=== PATIENT | female | born 1930 | race Two or more races ===

== ENCOUNTER 2020-01-18 18:14 | Observation (INO) | payer MEDICARE, OTHER ==
[2020-01-18] MEDS ORDERED: Sodium Chloride 0.9% 10 ML Syringe FLUSH PRN (18:19)
[2020-01-18] MEDS ORDERED: Acetaminophen 325 MG Tab PO ONE (18:41)
--- NOTE | 2020-01-18 18:43 | EDM.PDOC ---
ED HPI GENERAL MEDICAL PROBLEM - General Chief Complaint: Fever Stated Complaint: AMBULANCE Time Seen by Provider: 01/18/20 18:42 Source of Information: Reports: Patient History Limitations: Reports: No Limitations - History of Present Illness INITIAL COMMENTS - FREE TEXT/NARRATIVE: onset Sx today with F/C cough. daughter recently moved from [place] past month. denies CP some SOB, appetite xlent per pt. no N/V/D. no body aches, just feels tired and sick. 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: Musculoskeletal History: Reports: Back Pain, Chronic Neurological History: Reports: TIA Psychiatric History: Reports: None Endocrine/Metabolic History: Reports: Diabetes, Type I, Obesity/BMI 30+ Hematologic History: Reports: None Immunologic History: Reports: None Oncologic (Cancer) History: Reports: None Dermatologic History: Reports: None - Infectious Disease History Infectious Disease History: Reports: None - Past Surgical History Head Surgeries/Procedures: Reports: None Social & Family History - Family History Family Medical History: Noncontributory - Tobacco Use Smoking Status *Q: Never Smoker Second Hand Smoke Exposure: Yes - Caffeine Use Caffeine Use: Reports: Coffee - Recreational Drug Use Recreational Drug Use: No ED ROS GENERAL - Review of Systems Review Of Systems: Comprehensive ROS is negative, except as noted in HPI. ED EXAM, SEPSIS - Physical Exam Exam: See Below Exam Limited By: No Limitations General Appearance: Alert, WD/WN, Mild Distress, Other (discomfort) Ears: Hearing Grossly Normal Throat/Mouth: Normal Voice, No Airway Compromise Head: Atraumatic Neck: Non-Tender, Full Range of Motion Respiratory/Chest: No Respiratory Distress, Rhonchi Cardiovascular: Regular Rate, Rhythm GI/Abdominal Exam: Soft, Non-Tender Neurological: Alert, Oriented, Normal Cognition, No Motor/Sensory Deficits Psychiatric: Flat Affect Skin: Warm, Dry, Normal Color Course - Vital Signs Last Recorded V/S: Last Vital Signs Temp 37.6 C 01/18/20 19:53 Pulse 108 H 01/18/20 18:13 Resp 24 H 01/18/20 18:13 BP 160/57 H 01/18/20 18:13 Pulse Ox 94 L 01/18/20 18:13 - Orders/Labs/Meds Orders: Active Orders 24 hr Category Date Time Status Peripheral IV Care [RC] . DIRECTED Care 01/18/20 18:19 Active CULTURE BLOOD [BC] Stat Lab 01/18/20 18:59 Received CULTURE BLOOD [] Stat Lab 01/18/20 19:35 Received CULTURE STREP A CONFIRMATION [] Stat Lab 01/18/20 18:26 Results STREP SCRN A RAPID W CULT CONF [] Stat Lab 01/18/20 18:26 Results Sodium Chloride 0.9% [Saline Flush] Med 01/18/20 18:19 Active 10 ml FLUSH ASDIRECTED PRN Blood Culture x2 Reflex Set [OM.PC] Stat Oth 01/18/20 18:18 Ordered Isolation [COMM] Routine Oth 01/18/20 18:15 Active Peripheral IV Insertion Adult [OM.PC] Stat Oth 01/18/20 18:18 Ordered Medication Orders Sodium Chloride (Saline Flush) 10 ml FLUSH ASDIRECTED PRN PRN Reason: Keep Vein Open Last Admin: 01/18/20 18:45 Dose: 10 ml Labs: Laboratory Tests 01/18/20 01/18/20 01/18/20 Range/Units 18:26 18:59 18:59 WBC 20.2 H (5.0-10.0) 10^3/uL RBC 4.49 (4.2-5.4) 10^6/uL Hgb 13.3 (12.0-16.0) g/dL Hct 40.6 (37.0-47.0) % MCV 90.4 (80-100) fL MCH 29.6 (27.0-34.0) pg MCHC 32.8 L (33.0-35.0) g/dL Plt Count 235 (150-450) 10^3/uL Neut % (Auto) 88.3 H (42.2-75.2) % Lymph % (Auto) 4.1 L (20.5-50.1) % Mccormick % (Auto) 7.4 (2-8) % Eos % (Auto) 0.0 L (1.0-3.0) % Baso % (Auto) 0.2 (0.0-1.0) % Add Manual Diff Yes Neutrophils % (Manual) 87 H (42-75) % Band Neutrophils % 2 % Lymphocytes % (Manual) 3 L (20-50) % Monocytes % (Manual) 8 (2-8) % PT 9.8 (9.0-12.0) SEC INR 1.0 (0.9-1.2) APTT 25.0 (22.0-34.0) SEC D-Dimer, Quantitative 3530 H (0-400) ng/mL Sodium (136-145) mmol/L Potassium (3.5-5.1) mmol/L Chloride (98-107) mmol/L Carbon Dioxide (21-32) mmol/L Anion Gap (7-13) mEq/L BUN (7-18) mg/dL Creatinine (0.55-1.02) mg/dL Est Cr Clr Drug Dosing Estimated GFR (MDRD) BUN/Creatinine Ratio (No establ ref range) Glucose (74-99) mg/dL Lactic Acid (0.4-2.0) mmol/L Calcium (8.5-10.1) mg/dL Ferritin (8-252) mg/mL Total Bilirubin (0.2-1.0) mg/dL AST (15-37) U/L ALT (14-59) U/L Alkaline Phosphatase (46-116) U/L Creatine Kinase (16-191) U/L Troponin I (0.000-0.056) ng/mL C-Reactive Protein (0.0-0.9) mg/dL B-Natriuretic Peptide (0-100) pg/ml Total Protein (6.4-8.2) g/dL Albumin (3.4-5.0) g/dL Globulin Albumin/Globulin Ratio Urine Color (YELLOW) Urine Appearance (CLEAR) Urine pH (5.0-9.0) Ur Specific [place] (1.005-1.030) Urine Protein (NEGATIVE) Urine Glucose (UA) (NEGATIVE) Urine Ketones (NEGATIVE) Urine Occult Blood (NEGATIVE) Urine Nitrite (NEGATIVE) Urine Bilirubin (NEGATIVE) Urine Urobilinogen (0.2-1.0) mg/dL Ur Leukocyte Esterase (NEGATIVE) Urine RBC /HPF Urine WBC (0-5/HPF) /HPF Ur Epithelial Cells (NOT SEEN) /HPF Amorphous Sediment (NOT SEEN) /HPF Urine Bacteria (0-FEW/HPF) /HPF Granular Casts (Auto) Urine Mucus (NOT SEEN) /LPF SARS-CoV-2 RNA (RT-PCR) Negative (NEGATIVE) 01/18/20 01/18/20 01/18/20 Range/Units 18:59 18:59 18:59 WBC (5.0-10.0) 10^3/uL RBC (4.2-5.4) 10^6/uL Hgb (12.0-16.0) g/dL Hct (37.0-47.0) % MCV (80-100) fL MCH (27.0-34.0) pg MCHC (33.0-35.0) g/dL Plt Count (150-450) 10^3/uL Neut % (Auto) (42.2-75.2) % Lymph % (Auto) (20.5-50.1) % Mccormick % (Auto) (2-8) % Eos % (Auto) (1.0-3.0) % Baso % (Auto) (0.0-1.0) % Add Manual Diff Neutrophils % (Manual) (42-75) % Band Neutrophils % % Lymphocytes % (Manual) (20-50) % Monocytes % (Manual) (2-8) % PT (9.0-12.0) SEC INR (0.9-1.2) APTT (22.0-34.0) SEC D-Dimer, Quantitative (0-400) ng/mL Sodium 141 (136-145) mmol/L Potassium 3.3 L (3.5-5.1) mmol/L Chloride 105 (98-107) mmol/L Carbon Dioxide 28 (21-32) mmol/L Anion Gap 11.3 (7-13) mEq/L BUN 24 H (7-18) mg/dL Creatinine 1.48 H (0.55-1.02) mg/dL Est Cr Clr Drug Dosing TNP Estimated GFR (MDRD) 33 BUN/Creatinine Ratio 16.2 (No establ ref range) Glucose 131 H (74-99) mg/dL Lactic Acid 0.9 (0.4-2.0) mmol/L Calcium 8.4 L (8.5-10.1) mg/dL Ferritin 68 (8-252) mg/mL Total Bilirubin 0.5 (0.2-1.0) mg/dL AST 24 (15-37) U/L ALT 21 (14-59) U/L Alkaline Phosphatase 74 (46-116) U/L Creatine Kinase 191 (16-191) U/L Troponin I 0.019 (0.000-0.056) ng/mL C-Reactive Protein 3.6 H (0.0-0.9) mg/dL B-Natriuretic Peptide 127 H (0-100) pg/ml Total Protein 6.8 (6.4-8.2) g/dL Albumin 3.2 L (3.4-5.0) g/dL Globulin 3.6 Albumin/Globulin Ratio 0.89 Urine Color (YELLOW) Urine Appearance (CLEAR) Urine pH (5.0-9.0) Ur Specific [place] (1.005-1.030) Urine Protein (NEGATIVE) Urine Glucose (UA) (NEGATIVE) Urine Ketones (NEGATIVE) Urine Occult Blood (NEGATIVE) Urine Nitrite (NEGATIVE) Urine Bilirubin (NEGATIVE) Urine Urobilinogen (0.2-1.0) mg/dL Ur Leukocyte Esterase (NEGATIVE) Urine RBC /HPF Urine WBC (0-5/HPF) /HPF Ur Epithelial Cells (NOT SEEN) /HPF Amorphous Sediment (NOT SEEN) /HPF Urine Bacteria (0-FEW/HPF) /HPF Granular Casts (Auto) Urine Mucus (NOT SEEN) /LPF SARS-CoV-2 RNA (RT-PCR) (NEGATIVE) 01/18/20 Range/Units 19:58 WBC (5.0-10.0) 10^3/uL RBC (4.2-5.4) 10^6/uL Hgb (12.0-16.0) g/dL Hct (37.0-47.0) % MCV (80-100) fL MCH (27.0-34.0) pg MCHC (33.0-35.0) g/dL Plt Count (150-450) 10^3/uL Neut % (Auto) (42.2-75.2) % Lymph % (Auto) (20.5-50.1) % Mccormick % (Auto) (2-8) % Eos % (Auto) (1.0-3.0) % Baso % (Auto) (0.0-1.0) % Add Manual Diff Neutrophils % (Manual) (42-75) % Band Neutrophils % % Lymphocytes % (Manual) (20-50) % Monocytes % (Manual) (2-8) % PT (9.0-12.0) SEC INR (0.9-1.2) APTT (22.0-34.0) SEC D-Dimer, Quantitative (0-400) ng/mL Sodium (136-145) mmol/L Potassium (3.5-5.1) mmol/L Chloride (98-107) mmol/L Carbon Dioxide (21-32) mmol/L Anion Gap (7-13) mEq/L BUN (7-18) mg/dL Creatinine (0.55-1.02) mg/dL Est Cr Clr Drug Dosing Estimated GFR (MDRD) BUN/Creatinine Ratio (No establ ref range) Glucose (74-99) mg/dL Lactic Acid (0.4-2.0) mmol/L Calcium (8.5-10.1) mg/dL Ferritin (8-252) mg/mL Total Bilirubin (0.2-1.0) mg/dL AST (15-37) U/L ALT (14-59) U/L Alkaline Phosphatase (46-116) U/L Creatine Kinase (16-191) U/L Troponin I (0.000-0.056) ng/mL C-Reactive Protein (0.0-0.9) mg/dL B-Natriuretic Peptide (0-100) pg/ml Total Protein (6.4-8.2) g/dL Albumin (3.4-5.0) g/dL Globulin Albumin/Globulin Ratio Urine Color Yellow (YELLOW) Urine Appearance Clear (CLEAR) Urine pH 6.0 (5.0-9.0) Ur Specific [place] 1.020 (1.005-1.030) Urine Protein 30 H (NEGATIVE) Urine Glucose (UA) Negative (NEGATIVE) Urine Ketones Negative (NEGATIVE) Urine Occult Blood Negative (NEGATIVE) Urine Nitrite Negative (NEGATIVE) Urine Bilirubin Negative (NEGATIVE) Urine Urobilinogen 0.2 (0.2-1.0) mg/dL Ur Leukocyte Esterase Negative (NEGATIVE) Urine RBC Not seen /HPF Urine WBC 0-5 (0-5/HPF) /HPF Ur Epithelial Cells Few (NOT SEEN) /HPF Amorphous Sediment Few (NOT SEEN) /HPF Urine Bacteria Rare (0-FEW/HPF) /HPF Granular Casts (Auto) Occasional Urine Mucus Few H (NOT SEEN) /LPF SARS-CoV-2 RNA (RT-PCR) (NEGATIVE) Meds: Medications Generic Name Dose Route Start Last Admin Trade Name Nehal PRN Reason Stop Dose Admin Sodium Chloride 10 ml 01/18/20 18:19 01/18/20 18:45 Saline Flush FLUSH 10 ml ASDIRECTED PRN Administration Keep Vein Open Discontinued Medications Generic Name Dose Route Start Last Admin Trade Name Nehal PRN Reason Stop Dose Admin Acetaminophen 650 mg 01/18/20 18:41 01/18/20 18:45 Tylenol PO 01/18/20 18:42 650 mg NOW ONE Administration - Re-Assessments/Exams Free Text/Narrative Re-Assessment/Exam: 01/18/20 20:[address] Fournier who kindly admitted pt to observation. Departure - Departure Time of Disposition: 20:43 Disposition: Refer to Observation Condition: Good Clinical Impression: Fever of unknown origin (FUO), Elevated C-reactive protein (CRP) Leukocytosis, unspecified Qualifiers: Leukocytosis type: unspecified Qualified Code(s): D72.829 - Elevated white blood cell count, unspecified - Discharge Information Forms: ED Department Discharge Sepsis Event Note - Evaluation Sepsis Screening Result: No Definite Risk - Focused Exam Vital Signs: Vital Signs Temp Pulse Resp BP Pulse Ox 01/18/20 19:53 37.6 C 01/18/20 18:13 39.2 C H 108 H 24 H 160/57 H 94 L Date Exam was Performed: 01/18/20 Time Exam was Performed: 20:42
--- NOTE | 2020-01-18 19:12 | CR ---
PROCEDURE INFORMATION: Exam: XR Chest, 1 View Exam date and time: 01/18/2020 7:06 PM Age: 89 years old Clinical indication: Cough and fever; Additional info: Cough, fever TECHNIQUE: Imaging protocol: XR of the chest Views: 1 view. COMPARISON: No relevant prior studies available. FINDINGS: Lungs: Unremarkable. No consolidation. No edema. Pleural space: Unremarkable. No pleural effusion. No pneumothorax. Heart/Mediastinum: Unremarkable. No cardiomegaly. Bones/joints: Degenerative thoracic spine disease IMPRESSION: 1. No infiltrates or pulmonary edema. 2. No pleural effusions. 3. Degenerative thoracic spine disease.
[2020-01-18 19:29] LABS: ANION GAP 11.3 mEq/L (7-13); CHLORIDE,CL 105 mmol/L (98-107); SODIUM,NA 141 mmol/L (136-145)
[2020-01-18] MEDS ORDERED: Ondansetron 4 MG Tab.DIS PO PRN (21:25)
[2020-01-18] MEDS ORDERED: Docusate Sodium 100 MG Cap PO PRN (21:25)
[2020-01-18] MEDS ORDERED: Temazepam 15 MG Cap PO PRN (21:25)
[2020-01-18] MEDS ORDERED: Potassium Chloride 10 MEQ Tab.ER PO ONE (21:26)
[2020-01-18] MEDS ORDERED: Levofloxacin/Dextrose 5%-Water 750 MG in Premix Bag 1 BAG IV SCH (21:30)
--- NOTE | 2020-01-18 21:32 | PCM.HP ---
H&P History of Present Illness - General Date of Service: 01/18/20 Admit Problem/Dx: Admission Diagnosis/Problem Admission Diagnosis/Problem Fever due to infection Source of Information: Patient, Provider (ER dr. Florence) - History of Present Illness Initial Comments - Free Text/Narative: 89-year-old with a history of chronic kidney disease, hypertension, diet- controlled diabetes. The patient lives with elderly and granddaughter who moved to live with them about a month ago from [place]. Sick contact. The patient developed chills last night. Noted to have fever during the day. Apparently she had 2 complains of cough but denies that now. Not coughing during examination. Denies any other complaints. No shortness of breath, no chest pain, no abdominal pain, no diarrhea. Middle Back Pain Score (Numeric/FACES): 6 Past Medical History HEENT History: Reports: Impaired Vision Cardiovascular History: Reports: Hypertension Respiratory History: Reports: None Gastrointestinal History: Reports: Other (See Below) Other Gastrointestinal History: hernia Genitourinary History: Reports: Urinary Incontinence [employer] History: Reports: Musculoskeletal History: Reports: Back Pain, Chronic Neurological History: Reports: TIA Psychiatric History: Reports: None Endocrine/Metabolic History: Reports: Diabetes, Type I, Obesity/BMI 30+ Hematologic History: Reports: None Immunologic History: Reports: None Oncologic (Cancer) History: Reports: None Dermatologic History: Reports: None - Infectious Disease History Infectious Disease History: Reports: None - Past Surgical History Head Surgeries/Procedures: Reports: None Social & Family History - Family History Family Medical History: Noncontributory - Tobacco Use Smoking Status *Q: Never Smoker Second Hand Smoke Exposure: Yes - Caffeine Use Caffeine Use: Reports: Coffee - Recreational Drug Use Recreational Drug Use: No H&P Review of Systems - Review of Systems: Review Of Systems: See Below General: Reports: Fever, Chills Pulmonary: Denies: Shortness of Breath Cardiovascular: Denies: Chest Pain, Edema Gastrointestinal: Denies: Abdominal Pain Genitourinary: Denies: Dysuria Neurological: Denies: Headache, Seizure Exam - Exam Exam: See Below - Vital Signs Vital Signs: Last Vital Signs Temp 99.7 F 01/18/20 19:53 Pulse 84 01/18/20 21:17 Resp 20 01/18/20 21:17 BP 134/46 L 01/18/20 21:17 Pulse Ox 98 01/18/20 21:17 Weight: 186 lb - Exam General: Alert, Oriented (Although has a little knowledge of her medical conditions and cannot recall her medications.) Lungs: Clear to Auscultation, Normal Respiratory Effort Cardiovascular: Regular Rate, Regular Rhythm GI/Abdominal Exam: Normal Bowel Sounds, Soft, Non-Tender Extremities: No Pedal Edema - Patient Data Lab Results Last 24 hrs: Laboratory Results - last 24 hr 01/18/20 01/18/20 01/18/20 Range/Units 18:26 18:59 18:59 WBC 20.2 H (5.0-10.0) 10^3/uL RBC 4.49 (4.2-5.4) 10^6/uL Hgb 13.3 (12.0-16.0) g/dL Hct 40.6 (37.0-47.0) % MCV 90.4 (80-100) fL MCH 29.6 (27.0-34.0) pg MCHC 32.8 L (33.0-35.0) g/dL Plt Count 235 (150-450) 10^3/uL Neut % (Auto) 88.3 H (42.2-75.2) % Lymph % (Auto) 4.1 L (20.5-50.1) % Hutchinson % (Auto) 7.4 (2-8) % Eos % (Auto) 0.0 L (1.0-3.0) % Baso % (Auto) 0.2 (0.0-1.0) % Add Manual Diff Yes Neutrophils % (Manual) 87 H (42-75) % Band Neutrophils % 2 % Lymphocytes % (Manual) 3 L (20-50) % Monocytes % (Manual) 8 (2-8) % PT 9.8 (9.0-12.0) SEC INR 1.0 (0.9-1.2) APTT 25.0 (22.0-34.0) SEC D-Dimer, Quantitative 3530 H (0-400) ng/mL Sodium (136-145) mmol/L Potassium (3.5-5.1) mmol/L Chloride (98-107) mmol/L Carbon Dioxide (21-32) mmol/L Anion Gap (7-13) mEq/L BUN (7-18) mg/dL Creatinine (0.55-1.02) mg/dL Est Cr Clr Drug Dosing Estimated GFR (MDRD) BUN/Creatinine Ratio (No establ ref range) Glucose (74-99) mg/dL Lactic Acid (0.4-2.0) mmol/L Calcium (8.5-10.1) mg/dL Ferritin (8-252) mg/mL Total Bilirubin (0.2-1.0) mg/dL AST (15-37) U/L ALT (14-59) U/L Alkaline Phosphatase (46-116) U/L Creatine Kinase (16-191) U/L Troponin I (0.000-0.056) ng/mL C-Reactive Protein (0.0-0.9) mg/dL B-Natriuretic Peptide (0-100) pg/ml Total Protein (6.4-8.2) g/dL Albumin (3.4-5.0) g/dL Globulin Albumin/Globulin Ratio Urine Color (YELLOW) Urine Appearance (CLEAR) Urine pH (5.0-9.0) Ur Specific Picher (1.005-1.030) Urine Protein (NEGATIVE) Urine Glucose (UA) (NEGATIVE) Urine Ketones (NEGATIVE) Urine Occult Blood (NEGATIVE) Urine Nitrite (NEGATIVE) Urine Bilirubin (NEGATIVE) Urine Urobilinogen (0.2-1.0) mg/dL Ur Leukocyte Esterase (NEGATIVE) Urine RBC /HPF Urine WBC (0-5/HPF) /HPF Ur Epithelial Cells (NOT SEEN) /HPF Amorphous Sediment (NOT SEEN) /HPF Urine Bacteria (0-FEW/HPF) /HPF Granular Casts (Auto) Urine Mucus (NOT SEEN) /LPF SARS-CoV-2 RNA (RT-PCR) Negative (NEGATIVE) 01/18/20 01/18/20 01/18/20 Range/Units 18:59 18:59 18:59 WBC (5.0-10.0) 10^3/uL RBC (4.2-5.4) 10^6/uL Hgb (12.0-16.0) g/dL Hct (37.0-47.0) % MCV (80-100) fL MCH (27.0-34.0) pg MCHC (33.0-35.0) g/dL Plt Count (150-450) 10^3/uL Neut % (Auto) (42.2-75.2) % Lymph % (Auto) (20.5-50.1) % Hutchinson % (Auto) (2-8) % Eos % (Auto) (1.0-3.0) % Baso % (Auto) (0.0-1.0) % Add Manual Diff Neutrophils % (Manual) (42-75) % Band Neutrophils % % Lymphocytes % (Manual) (20-50) % Monocytes % (Manual) (2-8) % PT (9.0-12.0) SEC INR (0.9-1.2) APTT (22.0-34.0) SEC D-Dimer, Quantitative (0-400) ng/mL Sodium 141 (136-145) mmol/L Potassium 3.3 L (3.5-5.1) mmol/L Chloride 105 (98-107) mmol/L Carbon Dioxide 28 (21-32) mmol/L Anion Gap 11.3 (7-13) mEq/L BUN 24 H (7-18) mg/dL Creatinine 1.48 H (0.55-1.02) mg/dL Est Cr Clr Drug Dosing TNP Estimated GFR (MDRD) 33 BUN/Creatinine Ratio 16.2 (No establ ref range) Glucose 131 H (74-99) mg/dL Lactic Acid 0.9 (0.4-2.0) mmol/L Calcium 8.4 L (8.5-10.1) mg/dL Ferritin 68 (8-252) mg/mL Total Bilirubin 0.5 (0.2-1.0) mg/dL AST 24 (15-37) U/L ALT 21 (14-59) U/L Alkaline Phosphatase 74 (46-116) U/L Creatine Kinase 191 (16-191) U/L Troponin I 0.019 (0.000-0.056) ng/mL C-Reactive Protein 3.6 H (0.0-0.9) mg/dL B-Natriuretic Peptide 127 H (0-100) pg/ml Total Protein 6.8 (6.4-8.2) g/dL Albumin 3.2 L (3.4-5.0) g/dL Globulin 3.6 Albumin/Globulin Ratio 0.89 Urine Color (YELLOW) Urine Appearance (CLEAR) Urine pH (5.0-9.0) Ur Specific Picher (1.005-1.030) Urine Protein (NEGATIVE) Urine Glucose (UA) (NEGATIVE) Urine Ketones (NEGATIVE) Urine Occult Blood (NEGATIVE) Urine Nitrite (NEGATIVE) Urine Bilirubin (NEGATIVE) Urine Urobilinogen (0.2-1.0) mg/dL Ur Leukocyte Esterase (NEGATIVE) Urine RBC /HPF Urine WBC (0-5/HPF) /HPF Ur Epithelial Cells (NOT SEEN) /HPF Amorphous Sediment (NOT SEEN) /HPF Urine Bacteria (0-FEW/HPF) /HPF Granular Casts (Auto) Urine Mucus (NOT SEEN) /LPF SARS-CoV-2 RNA (RT-PCR) (NEGATIVE) 01/18/20 Range/Units 19:58 WBC (5.0-10.0) 10^3/uL RBC (4.2-5.4) 10^6/uL Hgb (12.0-16.0) g/dL Hct (37.0-47.0) % MCV (80-100) fL MCH (27.0-34.0) pg MCHC (33.0-35.0) g/dL Plt Count (150-450) 10^3/uL Neut % (Auto) (42.2-75.2) % Lymph % (Auto) (20.5-50.1) % Hutchinson % (Auto) (2-8) % Eos % (Auto) (1.0-3.0) % Baso % (Auto) (0.0-1.0) % Add Manual Diff Neutrophils % (Manual) (42-75) % Band Neutrophils % % Lymphocytes % (Manual) (20-50) % Monocytes % (Manual) (2-8) % PT (9.0-12.0) SEC INR (0.9-1.2) APTT (22.0-34.0) SEC D-Dimer, Quantitative (0-400) ng/mL Sodium (136-145) mmol/L Potassium (3.5-5.1) mmol/L Chloride (98-107) mmol/L Carbon Dioxide (21-32) mmol/L Anion Gap (7-13) mEq/L BUN (7-18) mg/dL Creatinine (0.55-1.02) mg/dL Est Cr Clr Drug Dosing Estimated GFR (MDRD) BUN/Creatinine Ratio (No establ ref range) Glucose (74-99) mg/dL Lactic Acid (0.4-2.0) mmol/L Calcium (8.5-10.1) mg/dL Ferritin (8-252) mg/mL Total Bilirubin (0.2-1.0) mg/dL AST (15-37) U/L ALT (14-59) U/L Alkaline Phosphatase (46-116) U/L Creatine Kinase (16-191) U/L Troponin I (0.000-0.056) ng/mL C-Reactive Protein (0.0-0.9) mg/dL B-Natriuretic Peptide (0-100) pg/ml Total Protein (6.4-8.2) g/dL Albumin (3.4-5.0) g/dL Globulin Albumin/Globulin Ratio Urine Color Yellow (YELLOW) Urine Appearance Clear (CLEAR) Urine pH 6.0 (5.0-9.0) Ur Specific Picher 1.020 (1.005-1.030) Urine Protein 30 H (NEGATIVE) Urine Glucose (UA) Negative (NEGATIVE) Urine Ketones Negative (NEGATIVE) Urine Occult Blood Negative (NEGATIVE) Urine Nitrite Negative (NEGATIVE) Urine Bilirubin Negative (NEGATIVE) Urine Urobilinogen 0.2 (0.2-1.0) mg/dL Ur Leukocyte Esterase Negative (NEGATIVE) Urine RBC Not seen /HPF Urine WBC 0-5 (0-5/HPF) /HPF Ur Epithelial Cells Few (NOT SEEN) /HPF Amorphous Sediment Few (NOT SEEN) /HPF Urine Bacteria Rare (0-FEW/HPF) /HPF Granular Casts (Auto) Occasional Urine Mucus Few H (NOT SEEN) /LPF SARS-CoV-2 RNA (RT-PCR) (NEGATIVE) Result Diagrams: 01/18/20 18:59 01/18/20 18:59 Danilo Results Last 24 hrs: Microbiology 01/18/20 18:26 Influenza Type A Antigen Screen - Final Nasal, Unspecified NEGATIVE INFLUENZA A VIRUS AG REFERENCE RANGE: NEGATIVE Influenza Type B Antigen Screen - Final NEGATIVE INFLUENZA B VIRUS AG REFERENCE RANGE: NEGATIVE 01/18/20 18:26 Group A Streptococcus Rapid Screen - Final Throat NEGATIVE STREP A SCREEN REFERENCE RANGE: NEGATIVE - Problem List (1) Diabetes SNOMED Code(s): 41228267 ICD Code: E11.9 - TYPE 2 DIABETES MELLITUS WITHOUT COMPLICATIONS Status: Acute Current Visit: Yes (2) HTN (hypertension) SNOMED Code(s): 20554866 ICD Code: I10 - ESSENTIAL (PRIMARY) HYPERTENSION Status: Acute Current Visit: Yes (3) CKD (chronic kidney disease) stage 3, GFR 30-59 ml/min SNOMED Code(s): 641136068 ICD Code: N18.3 - CHRONIC KIDNEY DISEASE, STAGE 3 (MODERATE) Status: Acute Current Visit: Yes (4) CKD (chronic kidney disease) stage 3, GFR 30-59 ml/min SNOMED Code(s): 671139006 ICD Code: N18.3 - CHRONIC KIDNEY DISEASE, STAGE 3 (MODERATE) Status: Acute Current Visit: Yes (5) Fever of unknown origin (FUO) SNOMED Code(s): 4756880 ICD Code: R50.9 - FEVER, UNSPECIFIED Status: Acute Current Visit: No (6) Leukocytosis, unspecified SNOMED Code(s): 100350136, 767796959 ICD Code: D72.829 - ELEVATED WHITE BLOOD CELL COUNT, UNSPECIFIED Status: Acute Current Visit: No Qualifiers: Leukocytosis type: unspecified Qualified Code(s): D72.829 - Elevated white blood cell count, unspecified Problem List Initiated/Reviewed/Updated: Yes Orders Last 24hrs: Active Orders 24 hr Category Date Time Status Admission Diagnosis [ADT] Stat ADT 01/18/20 20:45 Ordered Admission Diagnosis [ADT] Urgent ADT 01/18/20 20:44 Ordered Admission Status [Patient Status] [ADT] Routine ADT 01/18/20 20:44 Active Admission Status [Patient Status] [ADT] Routine ADT 01/18/20 20:45 Active Antiembolic Devices [RC] PER UNIT ROUTINE Care 01/18/20 21:26 Ordered Glucose [Blood Glucose Check, Bedside] [RC] QIDACANDBED Care 01/18/20 21:24 Ordered Oxygen Therapy [RC] PRN Care 01/18/20 21:25 Ordered Up With Assistance [RC] ASDIRECTED Care 01/18/20 21:25 Ordered VTE/DVT Education [RC] PER UNIT ROUTINE Care 01/18/20 21:25 Ordered Vital Signs [RC] Q4H Care 01/18/20 21:25 Ordered Consistent Carbohydrate Diet [DIET] Diet 01/18/20 Breakfast Ordered BASIC METABOLIC PANEL,BMP [CHEM] AM Lab 01/19/20 05:15 Ordered CBC WITH AUTO DIFF [HEME] AM Lab 01/19/20 05:15 Ordered CULTURE BLOOD [BC] Stat Lab 01/18/20 18:59 Received CULTURE BLOOD [BC] Stat Lab 01/18/20 19:35 Received CULTURE STREP A CONFIRMATION [RM] Stat Lab 01/18/20 18:26 Results STREP SCRN A RAPID W CULT CONF [RM] Stat Lab 01/18/20 18:26 Results Acetaminophen [Tylenol] Med 01/18/20 21:25 Ordered 650 mg PO Q4H PRN Docusate Sodium [Colace] Med 01/18/20 21:25 Ordered 100 mg PO BID PRN Heparin Sodium Med 01/18/20 22:00 Ordered 5,000 units SUBCUT Q8HR Insulin Lispro [HumaLOG] Med 01/19/20 07:00 Ordered See Protocol SUBCUT ACBED Levofloxacin/Dextrose 5%-Water [Levaquin in D5W 750 MG/ Med 01/18/20 21:30 Ordered 150 ML] 750 mg Premix Bag 1 bag IV .Q48H Ondansetron [Zofran ODT] Med 01/18/20 21:25 Ordered 4 mg PO Q6H PRN Potassium Chloride [Klor-Con 10] Med 01/18/20 21:26 Once 20 meq PO ONETIME ONE Temazepam [Restoril] Med 01/18/20 21:25 Ordered 15 mg PO BEDTIME PRN Antiembolic Hose [OM.PC] Per Unit Routine Oth 01/18/20 21:25 Ordered Blood Culture x2 Reflex Set [OM.PC] Stat Oth 01/18/20 18:18 Ordered Isolation [COMM] Routine Oth 01/18/20 18:15 Active Peripheral IV Insertion Adult [OM.PC] Stat Oth 01/18/20 18:18 Ordered Resuscitation Status Routine Resus Stat 01/18/20 21:25 Ordered Medication Orders Acetaminophen (Tylenol) 650 mg PO Q4H PRN PRN Reason: Pain (Mild 1-3)/fever Docusate Sodium (Colace) 100 mg PO BID PRN PRN Reason: Constipation Heparin Sodium (Porcine) (Heparin Sodium) 5,000 units SUBCUT Q8HR JOSE LUIS Levofloxacin/Dextrose 750 mg/ (Premix) 150 mls @ 100 mls/hr IV .Q48H JOSE LUIS Insulin Human Lispro (Humalog) 0 unit SUBCUT ACBED JOSE LUIS; Protocol Ondansetron HCl (Zofran Odt) 4 mg PO Q6H PRN PRN Reason: nausea, able to take PO Potassium Chloride (Klor-Con 10) 20 meq PO ONETIME ONE Stop: 01/18/20 21:27 Temazepam (Restoril) 15 mg PO BEDTIME PRN PRN Reason: Sleep Assessment/Plan Comment:: 89-year-old lady presented with the fever, malaise. No localizing symptoms other than possible cough and maybe upper respiratory tract symptoms. Noted to have leukocytosis Differential diagnosis is wide Code with 19 test negative, influenza swab negative Urine analysis appears benign Obtain blood culture Empirically start the levofloxacin Repeat CBC in the morning Diabetes Diet-controlled We'll monitor blood sugars Give supplemental insulin as needed Hypertension Resume home medications Chronic kidney disease stage III Recheck electrolytes and renal function in the morning Hypokalemia We'll give oral supplement DVT prophylaxis with subcutaneous heparin The patient does have elevated d-dimer but this is nonspecific, no shortness of breath, no lower extremity swelling to suspect DVT or PE Discussed CODE STATUS. Patient elected DNR status.
[2020-01-18] MEDS: Heparin Sodium 5,000 Units/ML Vial SUBCUT SCH (21:58)
[2020-01-18] MEDS: Levofloxacin/Dextrose 5%-Water 750 MG in Premix Bag 1 BAG IV SCH (22:41)
[2020-01-18] MEDS ORDERED: guaiFENesin/Dextromethorphan 100-10 MG/5 ML Soln 5 ML Cup PO PRN (23:58)
[2020-01-19] MEDS: Heparin Sodium 5,000 Units/ML Vial SUBCUT SCH ×3 (06:09→21:46)
[2020-01-19] MEDS: Levothyroxine 75 MCG Tab PO SCH (06:09)
[2020-01-19 06:41] LABS: ANION GAP 15.5 mEq/L (7-13)
[2020-01-19] MEDS: Acetaminophen 325 MG Tab PO PRN ×2 (08:54→21:43)
[2020-01-19] MEDS: Insulin Lispro 100 Units/ML 3 ML Vial SUBCUT SCH ×4 (08:54→20:59)
[2020-01-19] MEDS: cloNIDine 0.1 MG Tab PO SCH ×2 (08:55→21:52)
[2020-01-19] MEDS: Losartan 50 MG Tab PO SCH (08:55)
[2020-01-19] MEDS: Hydrochlorothiazide 25 MG Tab PO SCH (08:56)
[2020-01-19] MEDS: amLODIPine 5 MG Tab PO SCH (08:56)
[2020-01-19] MEDS: Aspirin 81 MG Tab.EC PO SCH (08:56)
--- NOTE | 2020-01-19 10:22 | PCM.PN ---
- General Info Date of Service: 01/19/20 Admission Dx/Problem (Free Text): Admission Diagnosis/Problem Admission Diagnosis/Problem Fever Subjective Update: low grade temp continued no localizing symptoms of infection no cp, no sob, no cough, no sore throat, no abd pain, no rash Functional Status: Reports: Pain Controlled, Tolerating Diet - Review of Systems General: Reports: Fever Pulmonary: Denies: Shortness of Breath Cardiovascular: Denies: Chest Pain Gastrointestinal: Denies: Abdominal Pain Genitourinary: Denies: Dysuria Neurological: Denies: Confusion - Patient Data Vitals - Most Recent: Last Vital Signs Temp 99.5 F 01/19/20 08:00 Pulse 92 01/19/20 08:00 Resp 20 01/19/20 08:00 BP 149/87 H 01/19/20 08:56 Pulse Ox 100 01/19/20 08:00 Weight - Most Recent: 186 lb 4.8 oz I&O - Last 24 Hours: Intake & Output 01/18/20 01/19/20 01/19/20 22:59 06:59 14:59 Intake Total 540 Output Total 900 Balance -360 Lab Results Last 24 Hours: Laboratory Results - last 24 hr 01/18/20 01/18/20 01/18/20 Range/Units 18:26 18:59 18:59 WBC 20.2 H (5.0-10.0) 10^3/uL RBC 4.49 (4.2-5.4) 10^6/uL Hgb 13.3 (12.0-16.0) g/dL Hct 40.6 (37.0-47.0) % MCV 90.4 (80-100) fL MCH 29.6 (27.0-34.0) pg MCHC 32.8 L (33.0-35.0) g/dL Plt Count 235 (150-450) 10^3/uL Neut % (Auto) 88.3 H (42.2-75.2) % Lymph % (Auto) 4.1 L (20.5-50.1) % [place] % (Auto) 7.4 (2-8) % Eos % (Auto) 0.0 L (1.0-3.0) % Baso % (Auto) 0.2 (0.0-1.0) % Add Manual Diff Yes Neutrophils % (Manual) 87 H (42-75) % Band Neutrophils % 2 % Lymphocytes % (Manual) 3 L (20-50) % Monocytes % (Manual) 8 (2-8) % PT 9.8 (9.0-12.0) SEC INR 1.0 (0.9-1.2) APTT 25.0 (22.0-34.0) SEC D-Dimer, Quantitative 3530 H (0-400) ng/mL Sodium (136-145) mmol/L Potassium (3.5-5.1) mmol/L Chloride (98-107) mmol/L Carbon Dioxide (21-32) mmol/L Anion Gap (7-13) mEq/L BUN (7-18) mg/dL Creatinine (0.55-1.02) mg/dL Est Cr Clr Drug Dosing Estimated GFR (MDRD) BUN/Creatinine Ratio (No establ ref range) Glucose (74-99) mg/dL POC Glucose (83-110) mg/dl Lactic Acid (0.4-2.0) mmol/L Calcium (8.5-10.1) mg/dL Ferritin (8-252) mg/mL Total Bilirubin (0.2-1.0) mg/dL AST (15-37) U/L ALT (14-59) U/L Alkaline Phosphatase (46-116) U/L Creatine Kinase (16-191) U/L Troponin I (0.000-0.056) ng/mL C-Reactive Protein (0.0-0.9) mg/dL B-Natriuretic Peptide (0-100) pg/ml Total Protein (6.4-8.2) g/dL Albumin (3.4-5.0) g/dL Globulin Albumin/Globulin Ratio Urine Color (YELLOW) Urine Appearance (CLEAR) Urine pH (5.0-9.0) Ur Specific [place] (1.005-1.030) Urine Protein (NEGATIVE) Urine Glucose (UA) (NEGATIVE) Urine Ketones (NEGATIVE) Urine Occult Blood (NEGATIVE) Urine Nitrite (NEGATIVE) Urine Bilirubin (NEGATIVE) Urine Urobilinogen (0.2-1.0) mg/dL Ur Leukocyte Esterase (NEGATIVE) Urine RBC /HPF Urine WBC (0-5/HPF) /HPF Ur Epithelial Cells (NOT SEEN) /HPF Amorphous Sediment (NOT SEEN) /HPF Urine Bacteria (0-FEW/HPF) /HPF Granular Casts (Auto) Urine Mucus (NOT SEEN) /LPF SARS-CoV-2 RNA (RT-PCR) Negative (NEGATIVE) 01/18/20 01/18/20 01/18/20 Range/Units 18:59 18:59 18:59 WBC (5.0-10.0) 10^3/uL RBC (4.2-5.4) 10^6/uL Hgb (12.0-16.0) g/dL Hct (37.0-47.0) % MCV (80-100) fL MCH (27.0-34.0) pg MCHC (33.0-35.0) g/dL Plt Count (150-450) 10^3/uL Neut % (Auto) (42.2-75.2) % Lymph % (Auto) (20.5-50.1) % [place] % (Auto) (2-8) % Eos % (Auto) (1.0-3.0) % Baso % (Auto) (0.0-1.0) % Add Manual Diff Neutrophils % (Manual) (42-75) % Band Neutrophils % % Lymphocytes % (Manual) (20-50) % Monocytes % (Manual) (2-8) % PT (9.0-12.0) SEC INR (0.9-1.2) APTT (22.0-34.0) SEC D-Dimer, Quantitative (0-400) ng/mL Sodium 141 (136-145) mmol/L Potassium 3.3 L (3.5-5.1) mmol/L Chloride 105 (98-107) mmol/L Carbon Dioxide 28 (21-32) mmol/L Anion Gap 11.3 (7-13) mEq/L BUN 24 H (7-18) mg/dL Creatinine 1.48 H (0.55-1.02) mg/dL Est Cr Clr Drug Dosing TNP Estimated GFR (MDRD) 33 BUN/Creatinine Ratio 16.2 (No establ ref range) Glucose 131 H (74-99) mg/dL POC Glucose (83-110) mg/dl Lactic Acid 0.9 (0.4-2.0) mmol/L Calcium 8.4 L (8.5-10.1) mg/dL Ferritin 68 (8-252) mg/mL Total Bilirubin 0.5 (0.2-1.0) mg/dL AST 24 (15-37) U/L ALT 21 (14-59) U/L Alkaline Phosphatase 74 (46-116) U/L Creatine Kinase 191 (16-191) U/L Troponin I 0.019 (0.000-0.056) ng/mL C-Reactive Protein 3.6 H (0.0-0.9) mg/dL B-Natriuretic Peptide 127 H (0-100) pg/ml Total Protein 6.8 (6.4-8.2) g/dL Albumin 3.2 L (3.4-5.0) g/dL Globulin 3.6 Albumin/Globulin Ratio 0.89 Urine Color (YELLOW) Urine Appearance (CLEAR) Urine pH (5.0-9.0) Ur Specific [place] (1.005-1.030) Urine Protein (NEGATIVE) Urine Glucose (UA) (NEGATIVE) Urine Ketones (NEGATIVE) Urine Occult Blood (NEGATIVE) Urine Nitrite (NEGATIVE) Urine Bilirubin (NEGATIVE) Urine Urobilinogen (0.2-1.0) mg/dL Ur Leukocyte Esterase (NEGATIVE) Urine RBC /HPF Urine WBC (0-5/HPF) /HPF Ur Epithelial Cells (NOT SEEN) /HPF Amorphous Sediment (NOT SEEN) /HPF Urine Bacteria (0-FEW/HPF) /HPF Granular Casts (Auto) Urine Mucus (NOT SEEN) /LPF SARS-CoV-2 RNA (RT-PCR) (NEGATIVE) 01/18/20 01/19/20 01/19/20 Range/Units 19:58 04:59 05:39 WBC 20.4 H (5.0-10.0) 10^3/uL RBC 4.19 L (4.2-5.4) 10^6/uL Hgb 12.5 (12.0-16.0) g/dL Hct 38.6 (37.0-47.0) % MCV 92.1 (80-100) fL MCH 29.8 (27.0-34.0) pg MCHC 32.4 L (33.0-35.0) g/dL Plt Count 239 (150-450) 10^3/uL Neut % (Auto) 82.6 H (42.2-75.2) % Lymph % (Auto) 10.3 L (20.5-50.1) % [place] % (Auto) 6.4 (2-8) % Eos % (Auto) 0.4 L (1.0-3.0) % Baso % (Auto) 0.3 (0.0-1.0) % Add Manual Diff Neutrophils % (Manual) (42-75) % Band Neutrophils % % Lymphocytes % (Manual) (20-50) % Monocytes % (Manual) (2-8) % PT (9.0-12.0) SEC INR (0.9-1.2) APTT (22.0-34.0) SEC D-Dimer, Quantitative (0-400) ng/mL Sodium (136-145) mmol/L Potassium (3.5-5.1) mmol/L Chloride (98-107) mmol/L Carbon Dioxide (21-32) mmol/L Anion Gap (7-13) mEq/L BUN (7-18) mg/dL Creatinine (0.55-1.02) mg/dL Est Cr Clr Drug Dosing Estimated GFR (MDRD) BUN/Creatinine Ratio (No establ ref range) Glucose (74-99) mg/dL POC Glucose 82 L (83-110) mg/dl Lactic Acid (0.4-2.0) mmol/L Calcium (8.5-10.1) mg/dL Ferritin (8-252) mg/mL Total Bilirubin (0.2-1.0) mg/dL AST (15-37) U/L ALT (14-59) U/L Alkaline Phosphatase (46-116) U/L Creatine Kinase (16-191) U/L Troponin I (0.000-0.056) ng/mL C-Reactive Protein (0.0-0.9) mg/dL B-Natriuretic Peptide (0-100) pg/ml Total Protein (6.4-8.2) g/dL Albumin (3.4-5.0) g/dL Globulin Albumin/Globulin Ratio Urine Color Yellow (YELLOW) Urine Appearance Clear (CLEAR) Urine pH 6.0 (5.0-9.0) Ur Specific [place] 1.020 (1.005-1.030) Urine Protein 30 H (NEGATIVE) Urine Glucose (UA) Negative (NEGATIVE) Urine Ketones Negative (NEGATIVE) Urine Occult Blood Negative (NEGATIVE) Urine Nitrite Negative (NEGATIVE) Urine Bilirubin Negative (NEGATIVE) Urine Urobilinogen 0.2 (0.2-1.0) mg/dL Ur Leukocyte Esterase Negative (NEGATIVE) Urine RBC Not seen /HPF Urine WBC 0-5 (0-5/HPF) /HPF Ur Epithelial Cells Few (NOT SEEN) /HPF Amorphous Sediment Few (NOT SEEN) /HPF Urine Bacteria Rare (0-FEW/HPF) /HPF Granular Casts (Auto) Occasional Urine Mucus Few H (NOT SEEN) /LPF SARS-CoV-2 RNA (RT-PCR) (NEGATIVE) 01/19/20 01/19/20 Range/Units 05:39 07:46 WBC (5.0-10.0) 10^3/uL RBC (4.2-5.4) 10^6/uL Hgb (12.0-16.0) g/dL Hct (37.0-47.0) % MCV (80-100) fL MCH (27.0-34.0) pg MCHC (33.0-35.0) g/dL Plt Count (150-450) 10^3/uL Neut % (Auto) (42.2-75.2) % Lymph % (Auto) (20.5-50.1) % [place] % (Auto) (2-8) % Eos % (Auto) (1.0-3.0) % Baso % (Auto) (0.0-1.0) % Add Manual Diff Neutrophils % (Manual) (42-75) % Band Neutrophils % % Lymphocytes % (Manual) (20-50) % Monocytes % (Manual) (2-8) % PT (9.0-12.0) SEC INR (0.9-1.2) APTT (22.0-34.0) SEC D-Dimer, Quantitative (0-400) ng/mL Sodium 145 (136-145) mmol/L Potassium 3.5 (3.5-5.1) mmol/L Chloride 106 (98-107) mmol/L Carbon Dioxide 27 (21-32) mmol/L Anion Gap 15.5 H (7-13) mEq/L BUN 23 H (7-18) mg/dL Creatinine 1.50 H (0.55-1.02) mg/dL Est Cr Clr Drug Dosing 22.82 Estimated GFR (MDRD) 33 BUN/Creatinine Ratio (No establ ref range) Glucose 144 H (74-99) mg/dL POC Glucose 90 (83-110) mg/dl Lactic Acid (0.4-2.0) mmol/L Calcium 8.5 (8.5-10.1) mg/dL Ferritin (8-252) mg/mL Total Bilirubin (0.2-1.0) mg/dL AST (15-37) U/L ALT (14-59) U/L Alkaline Phosphatase (46-116) U/L Creatine Kinase (16-191) U/L Troponin I (0.000-0.056) ng/mL C-Reactive Protein (0.0-0.9) mg/dL B-Natriuretic Peptide (0-100) pg/ml Total Protein (6.4-8.2) g/dL Albumin (3.4-5.0) g/dL Globulin Albumin/Globulin Ratio Urine Color (YELLOW) Urine Appearance (CLEAR) Urine pH (5.0-9.0) Ur Specific [place] (1.005-1.030) Urine Protein (NEGATIVE) Urine Glucose (UA) (NEGATIVE) Urine Ketones (NEGATIVE) Urine Occult Blood (NEGATIVE) Urine Nitrite (NEGATIVE) Urine Bilirubin (NEGATIVE) Urine Urobilinogen (0.2-1.0) mg/dL Ur Leukocyte Esterase (NEGATIVE) Urine RBC /HPF Urine WBC (0-5/HPF) /HPF Ur Epithelial Cells (NOT SEEN) /HPF Amorphous Sediment (NOT SEEN) /HPF Urine Bacteria (0-FEW/HPF) /HPF Granular Casts (Auto) Urine Mucus (NOT SEEN) /LPF SARS-CoV-2 RNA (RT-PCR) (NEGATIVE) Danilo Results Last 24 Hours: Microbiology 01/18/20 18:26 Influenza Type A Antigen Screen - Final Nasal, Unspecified NEGATIVE INFLUENZA A VIRUS AG REFERENCE RANGE: NEGATIVE Influenza Type B Antigen Screen - Final NEGATIVE INFLUENZA B VIRUS AG REFERENCE RANGE: NEGATIVE 01/18/20 18:26 Group A Streptococcus Rapid Screen - Final Throat NEGATIVE STREP A SCREEN REFERENCE RANGE: NEGATIVE Med Orders - Current: Current Medications Acetaminophen (Tylenol) 650 mg PO Q4H PRN PRN Reason: Pain (Mild 1-3)/fever Last Admin: 01/19/20 08:54 Dose: 650 mg Amlodipine Besylate (Norvasc) 10 mg PO DAILY [facility] Last Admin: 01/19/20 08:56 Dose: 10 mg Aspirin (Halfprin) 81 mg PO DAILY [facility] Last Admin: 01/19/20 08:56 Dose: 81 mg Clonidine HCl (Catapres) 0.2 mg PO BID [facility] Last Admin: 01/19/20 08:55 Dose: 0.2 mg Docusate Sodium (Colace) 100 mg PO BID PRN PRN Reason: Constipation Guaifenesin/Phenylephrine HCl (Robitussin Dm) 5 ml PO Q6H PRN PRN Reason: Congestion Heparin Sodium (Porcine) (Heparin Sodium) 5,000 units SUBCUT Q8HR [facility] Last Admin: 01/19/20 06:09 Dose: 5,000 units Hydrochlorothiazide (Hydrochlorothiazide) 25 mg PO DAILY [facility] Last Admin: 01/19/20 08:56 Dose: 25 mg Levofloxacin/Dextrose 750 mg/ (Premix) 150 mls @ 100 mls/hr IV Q48H [facility] Last Admin: 01/18/20 22:41 Dose: 100 mls/hr Insulin Human Lispro (Humalog) 0 unit SUBCUT ACBED [facility]; Protocol Last Admin: 01/19/20 08:54 Dose: Not Given Levothyroxine Sodium (Levothyroxine) 75 mcg PO ACBREAKFAST [facility] Last Admin: 01/19/20 06:09 Dose: 75 mcg Losartan Potassium (Cozaar) 50 mg PO DAILY [facility] Last Admin: 01/19/20 08:55 Dose: 50 mg Ondansetron HCl (Zofran Odt) 4 mg PO Q6H PRN PRN Reason: nausea, able to take PO Temazepam (Restoril) 15 mg PO BEDTIME PRN PRN Reason: Sleep Discontinued Medications Acetaminophen (Tylenol) 650 mg PO NOW ONE Stop: 01/18/20 18:42 Last Admin: 01/18/20 18:45 Dose: 650 mg Levofloxacin/Dextrose 750 mg/ (Premix) 150 mls @ 100 mls/hr IV .Q48H [facility] Potassium Chloride (Klor-Con 10) 20 meq PO ONETIME ONE Stop: 01/18/20 21:27 Last Admin: 01/18/20 21:56 Dose: 20 meq Sodium Chloride (Saline Flush) 10 ml FLUSH ASDIRECTED PRN PRN Reason: Keep Vein Open Last Admin: 01/18/20 18:45 Dose: 10 ml - Exam General: Alert, Oriented Neck: Supple Lungs: Clear to Auscultation, Normal Respiratory Effort Cardiovascular: Regular Rate, Regular Rhythm GI/Abdominal Exam: Normal Bowel Sounds, Soft, Non-Tender Extremities: No Pedal Edema Neurological: No New Focal Deficit Psy/Mental Status: Alert, Normal Affect, Normal Mood Sepsis Event Note - Evaluation Sepsis Screening Result: Sepsis Risk - Focused Exam Vital Signs: Vital Signs Temp Pulse Resp BP BP BP Pulse Ox 01/19/20 08:56 149/87 H 01/19/20 08:55 149/87 H 01/19/20 08:00 99.5 F 92 20 149/87 H 100 01/19/20 04:00 99.6 F 80 20 133/48 L 97 01/19/20 00:30 100.0 F Date Exam was Performed: 01/19/20 Time Exam was Performed: 10:19 - Problem List & Annotations (1) Diabetes SNOMED Code(s): 46515046 Code(s): E11.9 - TYPE 2 DIABETES MELLITUS WITHOUT COMPLICATIONS Status: Acute Current Visit: Yes (2) HTN (hypertension) SNOMED Code(s): 66118426 Code(s): I10 - ESSENTIAL (PRIMARY) HYPERTENSION Status: Acute Current Visit: Yes (3) CKD (chronic kidney disease) stage 3, GFR 30-59 ml/min SNOMED Code(s): 425194647 Code(s): N18.3 - CHRONIC KIDNEY DISEASE, STAGE 3 (MODERATE) Status: Acute Current Visit: Yes (4) CKD (chronic kidney disease) stage 3, GFR 30-59 ml/min SNOMED Code(s): 017427695 Code(s): N18.3 - CHRONIC KIDNEY DISEASE, STAGE 3 (MODERATE) Status: Acute Current Visit: Yes (5) Fever of unknown origin (FUO) SNOMED Code(s): 1795515 Code(s): R50.9 - FEVER, UNSPECIFIED Status: Acute Current Visit: No (6) Leukocytosis, unspecified SNOMED Code(s): 024124634, 475720804 Code(s): D72.829 - ELEVATED WHITE BLOOD CELL COUNT, UNSPECIFIED Status: Acute Current Visit: No Qualifiers: Leukocytosis type: unspecified Qualified Code(s): D72.829 - Elevated white blood cell count, unspecified - Problem List Review Problem List Initiated/Reviewed/Updated: Yes - My Orders Last 24 Hours: My Active Orders 01/18/20 21:24 Glucose [Blood Glucose Check, Bedside] [RC] QIDACANDBED 01/18/20 21:25 Oxygen Therapy [RC] PRN Up With Assistance [RC] ASDIRECTED VTE/DVT Education [RC] PER UNIT ROUTINE Vital Signs [RC] 00,04,08,12,16,20 Acetaminophen [Tylenol] 650 mg PO Q4H PRN Docusate Sodium [Colace] 100 mg PO BID PRN Ondansetron [Zofran ODT] 4 mg PO Q6H PRN Temazepam [Restoril] 15 mg PO BEDTIME PRN Antiembolic Hose [OM.PC] Per Unit Routine Resuscitation Status Routine 01/18/20 21:26 Antiembolic Devices [RC] PER UNIT ROUTINE 01/18/20 22:00 Heparin Sodium 5,000 units SUBCUT Q8HR 01/18/20 22:30 Levofloxacin/Dextrose 5%-Water [Levaquin in D5W 750 MG/150 ML] 750 mg Premix Bag 1 bag IV Q48H 01/18/20 23:58 Dextromethorphan/guaiFENesin [Robitussin DM] 5 ml PO Q6H PRN 01/19/20 06:00 Levothyroxine 75 mcg PO ACBREAKFAST 01/19/20 07:00 Insulin Lispro [HumaLOG] See Protocol SUBCUT ACBED 01/19/20 09:00 Aspirin [Halfprin] 81 mg PO DAILY Losartan [Cozaar] 50 mg PO DAILY amLODIPine [Norvasc] 10 mg PO DAILY cloNIDine [Catapres] 0.2 mg PO BID hydroCHLOROthiazide 25 mg PO DAILY - Plan Plan:: 89-year-old lady presented with the fever, malaise. No localizing symptoms other than possible cough and maybe upper respiratory tract symptoms. Noted to have leukocytosis Differential diagnosis is wide Code with 19 test negative, influenza swab negative Urine analysis appears benign blood culture: pending Empirically started the levofloxacin Repeat CBC in the morning Diabetes Diet-controlled We'll monitor blood sugars Give supplemental insulin as needed Hypertension Resume home medications Chronic kidney disease stage III Recheck electrolytes and monitor renal function Hypokalemia replaced will follow DVT prophylaxis with subcutaneous heparin The patient does have elevated d-dimer but this is nonspecific, no shortness of breath, no lower extremity swelling to suspect DVT or PE Discussed CODE STATUS. Patient elected DNR status on admission.
[2020-01-20] MEDS: Acetaminophen 325 MG Tab PO PRN ×3 (01:46→17:28)
[2020-01-20] MEDS: Levothyroxine 75 MCG Tab PO SCH (06:25)
[2020-01-20] MEDS: Heparin Sodium 5,000 Units/ML Vial SUBCUT SCH ×3 (06:28→21:50)
[2020-01-20 06:55] LABS: ANION GAP 12.7 mEq/L (7-13)
[2020-01-20] MEDS: cloNIDine 0.1 MG Tab PO SCH ×2 (08:12→20:12)
[2020-01-20] MEDS: Insulin Lispro 100 Units/ML 3 ML Vial SUBCUT SCH ×4 (08:12→20:44)
[2020-01-20] MEDS: amLODIPine 5 MG Tab PO SCH (08:13)
[2020-01-20] MEDS: Aspirin 81 MG Tab.EC PO SCH (08:13)
[2020-01-20] MEDS: Hydrochlorothiazide 25 MG Tab PO SCH (08:14)
[2020-01-20] MEDS: Losartan 50 MG Tab PO SCH ×2 (08:14→20:13)
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
[2020-01-20] MEDS: Levofloxacin/Dextrose 5%-Water 750 MG in Premix Bag 1 BAG IV SCH (21:51)
[2020-01-21] MEDS: Acetaminophen 325 MG Tab PO PRN (02:10)
[2020-01-21] MEDS: Levothyroxine 75 MCG Tab PO SCH (05:58)
[2020-01-21] MEDS: Heparin Sodium 5,000 Units/ML Vial SUBCUT SCH (05:58)
[2020-01-21] MEDS: Hydrochlorothiazide 25 MG Tab PO SCH (08:59)
[2020-01-21] MEDS: Losartan 50 MG Tab PO SCH (08:59)
[2020-01-21] MEDS: cloNIDine 0.1 MG Tab PO SCH (08:59)
[2020-01-21] MEDS: Insulin Lispro 100 Units/ML 3 ML Vial SUBCUT SCH (08:59)
[2020-01-21] MEDS: Aspirin 81 MG Tab.EC PO SCH (08:59)
[2020-01-21] MEDS: amLODIPine 5 MG Tab PO SCH (08:59)
--- NOTE | 2020-01-21 10:03 | PCM.DCSUM1 ---
Discharge Summary - Hospital Course Free Text/Narrative:: 89-year-old lady presented with the fever, malaise. No localizing symptoms other than minor chronic non productive cough Noted to have leukocytosis Differential diagnosis is wide Code with 19 test negative, influenza swab negative Urine analysis appears benign blood culture: pending - negative for now Empirically started levofloxacin leukocytosis resolved no more fever finish a few more days of Abx Diabetes Diet-controlled Hypertension cont home medications Chronic kidney disease stage III Recheck electrolytes and monitor renal function Hypokalemia replaced Diagnosis: Stroke: No - Discharge Data Discharge Date: 01/21/20 Discharge Disposition: Home, Self-Care 01 Condition: Stable - Referral to Home Health Primary Care Physician: PCP None - Discharge Diagnosis/Problem(s) (1) Diabetes SNOMED Code(s): 02082970 ICD Code: E11.9 - TYPE 2 DIABETES MELLITUS WITHOUT COMPLICATIONS Status: Acute Current Visit: Yes (2) HTN (hypertension) SNOMED Code(s): 15652652 ICD Code: I10 - ESSENTIAL (PRIMARY) HYPERTENSION Status: Acute Current Visit: Yes (3) CKD (chronic kidney disease) stage 3, GFR 30-59 ml/min SNOMED Code(s): 203838031 ICD Code: N18.3 - CHRONIC KIDNEY DISEASE, STAGE 3 (MODERATE) Status: Acute Current Visit: Yes (4) CKD (chronic kidney disease) stage 3, GFR 30-59 ml/min SNOMED Code(s): 760060283 ICD Code: N18.3 - CHRONIC KIDNEY DISEASE, STAGE 3 (MODERATE) Status: Acute Current Visit: Yes (5) Fever of unknown origin (FUO) SNOMED Code(s): 2179089 ICD Code: R50.9 - FEVER, UNSPECIFIED Status: Acute Current Visit: No (6) Leukocytosis, unspecified SNOMED Code(s): 441798410, 236150022 ICD Code: D72.829 - ELEVATED WHITE BLOOD CELL COUNT, UNSPECIFIED Status: Acute Current Visit: No Qualifiers: Leukocytosis type: unspecified Qualified Code(s): D72.829 - Elevated white blood cell count, unspecified - Patient Instructions Diet: Diabetic Diet Activity: As Tolerated - Discharge Plan *PRESCRIPTION DRUG MONITORING PROGRAM REVIEWED*: Not Applicable *COPY OF PRESCRIPTION DRUG MONITORING REPORT IN PATIENT DUARTE: Not Applicable Prescriptions/Med Rec: Levofloxacin [Levaquin] 500 mg PO DAILY 4 Days #4 tablet Home Medications: Home Meds Aspirin [Halfprin] 81 mg PO DAILY 01/18/20 [History] Levothyroxine 75 mcg PO ACBREAKFAST 01/18/20 [History] Losartan [Cozaar] 50 mg PO DAILY 01/18/20 [History] amLODIPine [Norvasc] 10 mg PO DAILY 01/18/20 [History] cloNIDine [Catapres] 0.2 mg PO Q12HR 01/18/20 [History] guaiFENesin/Dextromethorphan [Tussin DM Cough & Chest] 5 - 10 ml PO Q6H PRN 01/01 [History] hydroCHLOROthiazide [Hydrochlorothiazide] 25 mg PO DAILY 01/18/20 [History] Levofloxacin [Levaquin] 500 mg PO DAILY 4 Days #4 tablet 01/21/20 [Rx] Forms: ED Department Discharge - Discharge Summary/Plan Comment DC Time >30 min.: No - General Info Date of Service: 01/21/20 - Review of Systems General: Denies: Fever, Weakness Pulmonary: Denies: Shortness of Breath Gastrointestinal: Denies: Abdominal Pain Neurological: Denies: Confusion - Patient Data Vitals - Most Recent: Last Vital Signs Temp 98.9 F 01/20/20 20:00 Pulse 80 01/20/20 20:00 Resp 18 01/20/20 20:00 BP 155/57 H 01/21/20 08:59 Pulse Ox 95 01/20/20 20:00 Weight - Most Recent: 184 lb 12.8 oz I&O - Last 24 hours: Intake & Output 01/20/20 01/21/20 01/21/20 22:59 06:59 14:59 Intake Total 600 148 Balance 600 148 Lab Results - Last 24 hrs: Laboratory Results - last 24 hr 01/20/20 01/20/20 01/20/20 Range/Units 11:53 16:52 20:38 WBC (5.0-10.0) 10^3/uL RBC (4.2-5.4) 10^6/uL Hgb (12.0-16.0) g/dL Hct (37.0-47.0) % MCV (80-100) fL MCH (27.0-34.0) pg MCHC (33.0-35.0) g/dL Plt Count (150-450) 10^3/uL Neut % (Auto) (42.2-75.2) % Lymph % (Auto) (20.5-50.1) % [place] % (Auto) (2-8) % Eos % (Auto) (1.0-3.0) % Baso % (Auto) (0.0-1.0) % POC Glucose 130 H 101 111 H (83-110) mg/dl 01/21/20 01/21/20 Range/Units 06:48 07:54 WBC 9.8 (5.0-10.0) 10^3/uL RBC 4.04 L (4.2-5.4) 10^6/uL Hgb 12.0 (12.0-16.0) g/dL Hct 37.0 (37.0-47.0) % MCV 91.6 (80-100) fL MCH 29.7 (27.0-34.0) pg MCHC 32.4 L (33.0-35.0) g/dL Plt Count 246 (150-450) 10^3/uL Neut % (Auto) 70.3 (42.2-75.2) % Lymph % (Auto) 16.8 L (20.5-50.1) % [place] % (Auto) 7.5 (2-8) % Eos % (Auto) 4.6 H (1.0-3.0) % Baso % (Auto) 0.8 (0.0-1.0) % POC Glucose 99 (83-110) mg/dl RON Results - Last 24 hrs: Microbiology 01/18/20 19:35 Aerobic Blood Culture - Preliminary Blood - Venous - Lab Draw NO GROWTH AFTER 2 DAYS Anaerobic Blood Culture - Preliminary NO GROWTH AFTER 2 DAYS 01/18/20 18:59 Aerobic Blood Culture - Preliminary Blood - Venous NO GROWTH AFTER 2 DAYS Anaerobic Blood Culture - Preliminary NO GROWTH AFTER 2 DAYS 01/18/20 18:26 Quick Strep Confirmation Culture - Final Throat NO GROUP A STREP ISOLATED REFERENCE RANGE: NEGATIVE Group A Streptococcus Rapid Screen - Final NEGATIVE STREP A SCREEN REFERENCE RANGE: NEGATIVE Med Orders - Current: Current Medications Acetaminophen (Tylenol) 650 mg PO Q4H PRN PRN Reason: Pain (Mild 1-3)/fever Last Admin: 06/08/20 02:10 Dose: 650 mg Amlodipine Besylate (Norvasc) 10 mg PO DAILY [facility] Last Admin: 01/21/20 08:59 Dose: 10 mg Aspirin (Halfprin) 81 mg PO DAILY [facility] Last Admin: 01/21/20 08:59 Dose: 81 mg Clonidine HCl (Catapres) 0.2 mg PO BID [facility] Last Admin: 01/21/20 08:59 Dose: 0.2 mg Docusate Sodium (Colace) 100 mg PO BID PRN PRN Reason: Constipation Guaifenesin/Phenylephrine HCl (Robitussin Dm) 5 ml PO Q6H PRN PRN Reason: Congestion Heparin Sodium (Porcine) (Heparin Sodium) 5,000 units SUBCUT Q8HR [facility] Last Admin: 01/21/20 05:58 Dose: 5,000 units Hydrochlorothiazide (Hydrochlorothiazide) 25 mg PO DAILY [facility] Last Admin: 01/21/20 08:59 Dose: 25 mg Levofloxacin/Dextrose 750 mg/ (Premix) 150 mls @ 100 mls/hr IV Q48H [facility] Last Admin: 01/20/20 21:51 Dose: 100 mls/hr Insulin Human Lispro (Humalog) 0 unit SUBCUT ACBED [facility]; Protocol Last Admin: 01/21/20 08:59 Dose: Not Given Levothyroxine Sodium (Levothyroxine) 75 mcg PO ACBREAKFAST [facility] Last Admin: 01/21/20 05:58 Dose: 75 mcg Losartan Potassium (Cozaar) 50 mg PO BID [facility] Last Admin: 01/21/20 08:59 Dose: 50 mg Ondansetron HCl (Zofran Odt) 4 mg PO Q6H PRN PRN Reason: nausea, able to take PO Temazepam (Restoril) 15 mg PO BEDTIME PRN PRN Reason: Sleep Discontinued Medications Acetaminophen (Tylenol) 650 mg PO NOW ONE Stop: 01/18/20 18:42 Last Admin: 01/18/20 18:45 Dose: 650 mg Levofloxacin/Dextrose 750 mg/ (Premix) 150 mls @ 100 mls/hr IV .Q48H [facility] Losartan Potassium (Cozaar) 50 mg PO DAILY [facility] Last Admin: 01/20/20 08:14 Dose: 50 mg Potassium Chloride (Klor-Con 10) 20 meq PO ONETIME ONE Stop: 01/18/20 21:27 Last Admin: 01/18/20 21:56 Dose: 20 meq Sodium Chloride (Saline Flush) 10 ml FLUSH ASDIRECTED PRN PRN Reason: Keep Vein Open Last Admin: 01/18/20 18:45 Dose: 10 ml - Exam General: Reports: Alert, Oriented Neck: Reports: Supple Lungs: Reports: Clear to Auscultation, Normal Respiratory Effort Cardiovascular: Reports: Regular Rate, Regular Rhythm, Murmurs (systolic) GI/Abdominal Exam: Normal Bowel Sounds, Soft, Non-Tender, Other (ventral hernia) Skin: Reports: Warm, Dry
== END 2020-01-21 10:30 | disposition home or self-care (01) ==
LOC: DL.ED 18:14 → DL.MS 20:44 → DL.ED 20:58
PROVIDERS: ADMIT Internal Medicine; ATTEND Internal Medicine
DX: R50.9 Fever, unspecified (principal); R05 Cough; R53.81 Other malaise; E66.9 Obesity, unspecified; R79.82 Elevated C-reactive protein (CRP); I12.9 Hypertensive chronic kidney disease with stage 1 through stage 4 chronic kidney disease, or unspecified chronic kidney disease; E11.22 Type 2 diabetes mellitus with diabetic chronic kidney disease; N18.3 Chronic kidney disease, stage 3 (moderate); D72.829 Elevated white blood cell count, unspecified; E87.6 Hypokalemia; Z20.828 Contact with and (suspected) exposure to other viral communicable diseases; Z66 Do not resuscitate; Z68.31 Body mass index [BMI] 31.0-31.9, adult
CPT/HCPCS: 36415; 71045; 80048; 80053; 81001; 82550; 82728; 82962; 83605; 83880; 84484; 85025; 85379; 85610; 85730; 86140; 87040; 87081; 87430; 87804; 96365; 96366; 96372; 99284; 99285-25; A9270-GY; G0378; J1644; J1956; U0002

== ENCOUNTER 2021-07-07 12:16 | Inpatient (IN) | payer MEDICARE, OTHER ==
[2021-07-07] MEDS ORDERED: Diltiazem 25 MG/5 ML SDV IVPUSH ONE (12:40)
--- NOTE | 2021-07-07 12:57 | EDM.PDOC ---
ED HPI GENERAL MEDICAL PROBLEM - General Stated Complaint: IN BY [facility] Time Seen by Provider: 07/07/21 12:45 Source of Information: Reports: Patient History Limitations: Reports: No Limitations - History of Present Illness INITIAL COMMENTS - FREE TEXT/NARRATIVE: This 89 yo female patient was brought to the ED by [facility] due to not feeling well. EMS reported the patient's heart rate was in the 140's during their assessment. The patient reports she started to feel increased warmth yesterday afternoon and noticed some burning with urination. The patient reports she was feeling worse today. The patient denies any history of rapid or irregular heart rates. The patient reports she does have family members that tested positive for COVID and has family members that are symptomatic at this time. The patient reports she has not been tested recently. Onset Date: 07/06/21 Duration: Constant, Getting Worse Location: Reports: Generalized Quality: Reports: Other Severity: Moderate Improves with: Reports: None Worsens with: Reports: None Context: Reports: Other Associated Symptoms: Reports: Fever/Chills, Shortness of Breath, Weakness - Related Data Allergies Allergy/AdvReac Type Severity Reaction Status Date / Time Penicillins Allergy Cannot Verified 07/07/21 12:15 Remember dust Allergy Cannot Uncoded 07/07/21 12:15 Remember Home Meds: Home Meds Aspirin [Halfprin] 81 mg PO DAILY 01/18/20 [History] Levothyroxine 75 mcg PO ACBREAKFAST 01/18/20 [History] Losartan [Cozaar] 50 mg PO DAILY 01/18/20 [History] amLODIPine [Norvasc] 10 mg PO DAILY 01/18/20 [History] cloNIDine [Catapres] 0.2 mg PO Q12HR 01/18/20 [History] guaiFENesin/Dextromethorphan [Tussin DM Cough & Chest] 5 - 10 ml PO Q6H PRN 01/18/20 [History] hydroCHLOROthiazide [Hydrochlorothiazide] 25 mg PO DAILY 01/18/20 [History] Levofloxacin [Levaquin] 500 mg PO DAILY 4 Days #4 tablet 01/21/20 [Rx] Past Medical History HEENT History: Reports: Impaired Vision Cardiovascular History: Reports: Hypertension Respiratory History: Reports: None Gastrointestinal History: Reports: Other (See Below) Other Gastrointestinal History: hernia Genitourinary History: Reports: Urinary Incontinence Other Genitourinary History: ONE UTI 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: Musculoskeletal History: Reports: Back Pain, Chronic Neurological History: Reports: TIA Psychiatric History: Reports: None Endocrine/Metabolic History: Reports: Obesity/BMI 30+, Other (See Below) Other Endocrine/Metabolic History: 'DIABETES RUNS IN FAMILY' - BUT DENIES Hematologic History: Reports: None Immunologic History: Reports: None Oncologic (Cancer) History: Reports: None Dermatologic History: Reports: None - Infectious Disease History Infectious Disease History: Reports: None - Past Surgical History Head Surgeries/Procedures: Reports: None Respiratory Surgical History: Reports: None Endocrine Surgical History: Reports: None Social & Family History - Family History Family Medical History: No Pertinent Family History - Caffeine Use Caffeine Use: Reports: Coffee ED ROS GENERAL - Review of Systems Review Of Systems: Comprehensive ROS is negative, except as noted in HPI. ED EXAM, GENERAL - Physical Exam Exam: See Below Exam Limited By: No Limitations General Appearance: Alert, WD/WN, Anxious, Moderate Distress Eye Exam: Bilateral Eye: EOMI, Normal Inspection, PERRL Ears: Normal External Exam, Normal Canal, Hearing Grossly Normal, Normal TMs Nose: Normal Inspection, Normal Mucosa, No Blood Throat/Mouth: Normal Inspection, Normal Lips, Normal Teeth, Normal Gums, Normal Oropharynx, Normal Voice, No Airway Compromise Head: Atraumatic, Normocephalic Neck: Normal Inspection, Supple, Non-Tender, Full Range of Motion Respiratory/Chest: Decreased Breath Sounds Cardiovascular: Tachycardia GI/Abdominal: Normal Bowel Sounds, Soft, Non-Tender, No Organomegaly, No Distention, No Abnormal Bruit, No Mass (Female) Exam: Deferred Rectal (Female) Exam: Deferred Back Exam: Normal Inspection, Full Range of Motion, NT Extremities: Normal Inspection, Normal Range of Motion, Non-Tender, Normal Capillary Refill, No Pedal Edema Neurological: Alert, Oriented, CN II-XII Intact, Normal Cognition, Normal Gait, Normal Reflexes, No Motor/Sensory Deficits Psychiatric: Normal Affect, Normal Mood Skin Exam: Warm, Dry, Intact, Normal Color, No Rash Lymphatic: No Adenopathy #1 Interpretation EKG Date: 07/07/21 Time: 12:29 Rhythm: Other (A fib with RVR) Rate (Beats/Min): 162 [place]: Normal P-Wave: Absent QRS: Normal Comparison: Change From Previous EKG Course - Vital Signs Last Recorded V/S: Last Vital Signs Temp 98.6 F 07/07/21 12:17 Pulse 149 H 07/07/21 12:29 Resp 20 07/07/21 12:29 BP 162/126 H 07/07/21 12:29 Pulse Ox 92 L 07/07/21 12:29 - Orders/Labs/Meds Orders: Active Orders 24 hr Category Date Time Status Admission Diagnosis [ADT] Urgent ADT 07/07/21 15:44 Ordered Admission Status [Patient Status] [ADT] Urgent ADT 07/07/21 15:44 Ordered CULTURE BLOOD [BC] Stat Lab 07/07/21 12:29 Received CULTURE URINE [RM] Urgent Lab 07/07/21 12:30 Received Diltiazem 125 mg Med 07/07/21 13:40 Active Sodium Chloride 0.9% [Normal Saline] 100 ml IV ASDIRECTED Medication Orders Diltiazem HCl 125 mg/ Sodium (Chloride) 125 mls @ 4.167 mls/hr IV ASDIRECTED JOSE LUIS Last Infusion: 07/07/21 15:44 Dose: 15 mls/hr Documented by: Infusion: 07/07/21 14:43 Dose: 10 mls/hr Documented by: Infusion: 07/07/21 14:16 Dose: 7 mls/hr Documented by: Infusion: 07/07/21 13:59 Dose: 5 mls/hr Documented by: Admin: 07/07/21 13:49 Dose: 4.167 mls/hr Documented by: RITA Labs: Laboratory Tests 07/07/21 07/07/21 07/07/21 Range/Units 11:54 12:29 12:29 WBC 11.9 H (5.0-10.0) 10^3/uL RBC 4.88 (4.2-5.4) 10^6/uL Hgb 14.7 D (12.0-16.0) g/dL Hct 44.9 (37.0-47.0) % MCV 92.0 (80-100) fL MCH 30.1 (27.0-34.0) pg MCHC 32.7 L (33.0-35.0) g/dL Plt Count 288 (150-450) 10^3/uL Neut % (Auto) 81.8 H (42.2-75.2) % Lymph % (Auto) 13.0 L (20.5-50.1) % [place] % (Auto) 4.3 (2-8) % Eos % (Auto) 0.3 L (1.0-3.0) % Baso % (Auto) 0.6 (0.0-1.0) % Sodium 145 (136-145) mmol/L Potassium 3.6 (3.5-5.1) mmol/L Chloride 107 (98-107) mmol/L Carbon Dioxide 26 (21-32) mmol/L Anion Gap 15.6 H (7-13) mEq/L BUN 26 H (7-18) mg/dL Creatinine 1.30 H (0.55-1.02) mg/dL Est Cr Clr Drug Dosing 23.66 mL/min Estimated GFR (MDRD) 39 BUN/Creatinine Ratio 20.0 (No establ ref range) Glucose 145 H (70-99) mg/dL Lactic Acid (0.4-2.0) mmol/L Calcium 9.3 (8.5-10.1) mg/dL Total Bilirubin 0.5 (0.2-1.0) mg/dL AST 17 (15-37) U/L ALT 20 (14-59) U/L Alkaline Phosphatase 78 (46-116) U/L Troponin I High Sens 39 (<=51) pg/mL Total Protein 7.7 (6.4-8.2) g/dL Albumin 3.5 (3.4-5.0) g/dL Globulin 4.2 Albumin/Globulin Ratio 0.8 Urine Color (YELLOW) Urine Appearance (CLEAR) Urine pH (5.0-9.0) Ur Specific [place] (1.005-1.030) Urine Protein (NEGATIVE) Urine Glucose (UA) (NEGATIVE) Urine Ketones (NEGATIVE) Urine Occult Blood (NEGATIVE) Urine Nitrite (NEGATIVE) Urine Bilirubin (NEGATIVE) Urine Urobilinogen (0.2-1.0) mg/dL Ur Leukocyte Esterase (NEGATIVE) Urine RBC (0-5) /HPF Urine WBC (0-5/HPF) /HPF Ur Epithelial Cells (NOT SEEN) /HPF Urine Bacteria (0-FEW/HPF) /HPF Influenza Type A RNA Negative (NEGATIVE) Influenza Type B RNA Negative (NEGATIVE) SARS-CoV-2 RNA (ANIKA) Negative (NEGATIVE) 07/07/21 07/07/21 Range/Units 12:29 12:30 WBC (5.0-10.0) 10^3/uL RBC (4.2-5.4) 10^6/uL Hgb (12.0-16.0) g/dL Hct (37.0-47.0) % MCV (80-100) fL MCH (27.0-34.0) pg MCHC (33.0-35.0) g/dL Plt Count (150-450) 10^3/uL Neut % (Auto) (42.2-75.2) % Lymph % (Auto) (20.5-50.1) % [place] % (Auto) (2-8) % Eos % (Auto) (1.0-3.0) % Baso % (Auto) (0.0-1.0) % Sodium (136-145) mmol/L Potassium (3.5-5.1) mmol/L Chloride (98-107) mmol/L Carbon Dioxide (21-32) mmol/L Anion Gap (7-13) mEq/L BUN (7-18) mg/dL Creatinine (0.55-1.02) mg/dL Est Cr Clr Drug Dosing mL/min Estimated GFR (MDRD) BUN/Creatinine Ratio (No establ ref range) Glucose (70-99) mg/dL Lactic Acid 1.2 (0.4-2.0) mmol/L Calcium (8.5-10.1) mg/dL Total Bilirubin (0.2-1.0) mg/dL AST (15-37) U/L ALT (14-59) U/L Alkaline Phosphatase (46-116) U/L Troponin I High Sens (<=51) pg/mL Total Protein (6.4-8.2) g/dL Albumin (3.4-5.0) g/dL Globulin Albumin/Globulin Ratio Urine Color Yellow (YELLOW) Urine Appearance Cloudy (CLEAR) Urine pH 6.5 (5.0-9.0) Ur Specific [place] 1.020 (1.005-1.030) Urine Protein 100 H (NEGATIVE) Urine Glucose (UA) Negative (NEGATIVE) Urine Ketones Negative (NEGATIVE) Urine Occult Blood Trace-lysed H (NEGATIVE) Urine Nitrite Positive H (NEGATIVE) Urine Bilirubin Negative (NEGATIVE) Urine Urobilinogen 0.2 (0.2-1.0) mg/dL Ur Leukocyte Esterase Small H (NEGATIVE) Urine RBC 0-5 (0-5) /HPF Urine WBC 40-50 H (0-5/HPF) /HPF Ur Epithelial Cells Few (NOT SEEN) /HPF Urine Bacteria Many H (0-FEW/HPF) /HPF Influenza Type A RNA (NEGATIVE) Influenza Type B RNA (NEGATIVE) SARS-CoV-2 RNA (ANIKA) (NEGATIVE) Meds: Medications Generic Name Dose Route Start Last Admin Trade Name Freq PRN Reason Stop Dose Admin Diltiazem HCl 125 mg/ Sodium 125 mls @ 4.167 mls/hr 07/07/21 13:40 07/07/21 15:44 Chloride IV 15 mls/hr ASDIRECTED JOSE LUIS Infusion Discontinued Medications Generic Name Dose Route Start Last Admin Trade Name Freq PRN Reason Stop Dose Admin Diltiazem HCl 20 mg 07/07/21 12:40 07/07/21 12:47 Diltiazem 25 Mg/5 Ml Sdv IVPUSH 07/07/21 12:41 20 mg ONETIME ONE Administration Diltiazem HCl 125 mg/ Sodium 150 mls @ 5 mls/hr 07/07/21 13:30 Chloride IV ASDIRECTED JOSE LUIS Ceftriaxone Sodium 1 gm/ 50 mls @ 100 mls/hr 07/07/21 13:31 07/07/21 13:52 Sodium Chloride IV 07/07/21 14:00 100 mls/hr ONETIME ONE Administration Departure - Departure Time of Disposition: 15:49 Disposition: Admitted As Inpatient 68 Condition: Fair Clinical Impression: Atrial fibrillation with RVR UTI (urinary tract infection) Qualifiers: Urinary tract infection type: site unspecified Hematuria presence: with hematuria Qualified Code(s): N39.0 - Urinary tract infection, site not specified; R31.9 - Hematuria, unspecified - Discharge Information *PRESCRIPTION DRUG MONITORING PROGRAM REVIEWED*: Not Applicable *COPY OF PRESCRIPTION DRUG MONITORING REPORT IN PATIENT DUARTE: Not Applicable Care Plan Goals: Discussed the patient's history, examination, lab, EKG and treatments with Dr. Fournier. Dr. Fournier accepted the patient for continued evaluation and management at [facility]. Sepsis Event Note (ED) - Evaluation Sepsis Screening Result: Possible Sepsis Risk - Focused Exam Vital Signs: Vital Signs Temp Pulse Resp BP Pulse Ox 07/07/21 12:29 149 H 20 162/126 H 92 L 07/07/21 12:17 98.6 F 130 H 25 H 165/92 H 91 L - My Orders Last 24 Hours: My Active Orders 07/07/21 12:29 CULTURE BLOOD [BC] Stat 07/07/21 12:30 CULTURE URINE [RM] Urgent 07/07/21 13:40 Diltiazem 125 mg Sodium Chloride 0.9% [Normal Saline] 100 ml IV ASDIRECTED 07/07/21 15:44 Admission Diagnosis [ADT] Urgent Admission Status [Patient Status] [ADT] Urgent - Assessment/Plan Last 24 Hours: My Active Orders 07/07/21 12:29 CULTURE BLOOD [BC] Stat 07/07/21 12:30 CULTURE URINE [RM] Urgent 07/07/21 13:40 Diltiazem 125 mg Sodium Chloride 0.9% [Normal Saline] 100 ml IV ASDIRECTED 07/07/21 15:44 Admission Diagnosis [ADT] Urgent Admission Status [Patient Status] [ADT] Urgent
[2021-07-07 12:59] LABS: ANION GAP 15.6 mEq/L (7-13)
[2021-07-07 13:01] LABS: CORONAVIRUS COVID-19 NAA NEGATIVE (NEGATIVE)
[2021-07-07] MEDS ORDERED: Diltiazem 125 MG in Sodium Chloride 0.9% 125 ML IV SCH (13:30)
[2021-07-07] MEDS ORDERED: cefTRIAXone 1 GM in Sodium Chloride 0.9% 50 ML IV ONE (13:31)
[2021-07-07] MEDS ORDERED: Diltiazem 125 MG in Sodium Chloride 0.9% 100 ML IV SCH (13:40)
[2021-07-07] MEDS ORDERED: guaiFENesin/Dextromethorphan 100-10 MG/5 ML Soln 5 ML Cup PO PRN (16:40)
[2021-07-07] MEDS ORDERED: Acetaminophen 325 MG Tab PO PRN (17:11)
[2021-07-07] MEDS ORDERED: Sodium Chloride 0.9% 10 ML Syringe FLUSH PRN (17:11)
[2021-07-07] MEDS ORDERED: Ondansetron 4 MG/2 ML SDV IVPUSH PRN (17:11)
[2021-07-07] MEDS ORDERED: Docusate Sodium 100 MG Cap PO PRN (17:11)
--- NOTE | 2021-07-07 17:18 | PCM.HP ---
H&P History of Present Illness - General Date of Service: 07/07/21 Admit Problem/Dx: Admission Diagnosis/Problem Admission Diagnosis/Problem Atrial fibrillation with rapid ventricular response Source of Information: Patient History Limitations: Reports: No Limitations - History of Present Illness Initial Comments - Free Text/Narative: 89 yo lives with has chronic low back pain, worse with walking felt chillls, sweaty, subjective fever last night called ambulance was noted to have tachycardia 140s in er noted rapid Afib cardizem drip started - Related Data Allergies/Adverse Reactions: Allergies Allergy/AdvReac Type Severity Reaction Status Date / Time milk Allergy Other Verified 07/07/21 16:52 Penicillins Allergy Cannot Verified 07/07/21 12:15 Remember dust Allergy Cannot Uncoded 07/07/21 12:15 Remember Home Medications: Home Meds Aspirin [Halfprin] 81 mg PO DAILY 01/18/20 [History] Levothyroxine 75 mcg PO ACBREAKFAST 01/18/20 [History] Losartan [Cozaar] 50 mg PO DAILY 01/18/20 [History] amLODIPine [Norvasc] 10 mg PO DAILY 01/18/20 [History] cloNIDine [Catapres] 0.2 mg PO BID 01/18/20 [History] hydroCHLOROthiazide [Hydrochlorothiazide] 25 mg PO DAILY 01/18/20 [History] Fluticasone Propionate [Flovent Diskus] 50 mcg IH BEDTIME 07/07/21 [History] Gabapentin [Neurontin] 100 mg PO BID 07/07/21 [History] Magnesium Oxide 400 mg PO BEDTIME 07/07/21 [History] Past Medical History HEENT History: Reports: Impaired Vision Cardiovascular History: Reports: Hypertension Respiratory History: Reports: None Gastrointestinal History: Reports: Other (See Below) Other Gastrointestinal History: hernia Genitourinary History: Reports: Urinary Incontinence Other Genitourinary History: ONE UTI [employer] History: Reports: Musculoskeletal History: Reports: Back Pain, Chronic Neurological History: Reports: TIA Psychiatric History: Reports: None Endocrine/Metabolic History: Reports: Obesity/BMI 30+, Other (See Below) Other Endocrine/Metabolic History: 'DIABETES RUNS IN FAMILY' - BUT DENIES Hematologic History: Reports: None Immunologic History: Reports: None Oncologic (Cancer) History: Reports: None Dermatologic History: Reports: None - Infectious Disease History Infectious Disease History: Reports: None - Past Surgical History Head Surgeries/Procedures: Reports: None Respiratory Surgical History: Reports: None Endocrine Surgical History: Reports: None Social & Family History - Family History Family Medical History: No Pertinent Family History - Caffeine Use Caffeine Use: Reports: Coffee H&P Review of Systems - Review of Systems: Review Of Systems: See Below General: Reports: Fever (subjective), Chills Pulmonary: Denies: Shortness of Breath Cardiovascular: Denies: Chest Pain Gastrointestinal: Denies: Abdominal Pain Genitourinary: Reports: Dysuria Musculoskeletal: Reports: Other (chronic low back pain) Psychiatric: Denies: Confusion Exam - Exam Exam: See Below - Vital Signs Vital Signs: Last Vital Signs Temp 97.9 F 07/07/21 16:29 Pulse 91 07/07/21 16:29 Resp 18 07/07/21 16:29 BP 165/66 H 07/07/21 16:29 Pulse Ox 96 07/07/21 16:29 Weight: 180 lb - Exam General: Alert, Oriented Neck: Supple Lungs: Normal Respiratory Effort, Decreased Breath Sounds Cardiovascular: Regular Rate, Regular Rhythm GI/Abdominal Exam: Normal Bowel Sounds, Soft, Non-Tender Extremities: No Pedal Edema - Patient Data Lab Results Last 24 hrs: Laboratory Results - last 24 hr 07/07/21 07/07/21 07/07/21 Range/Units 11:54 12:29 12:29 WBC 11.9 H (5.0-10.0) 10^3/uL RBC 4.88 (4.2-5.4) 10^6/uL Hgb 14.7 D (12.0-16.0) g/dL Hct 44.9 (37.0-47.0) % MCV 92.0 (80-100) fL MCH 30.1 (27.0-34.0) pg MCHC 32.7 L (33.0-35.0) g/dL Plt Count 288 (150-450) 10^3/uL Neut % (Auto) 81.8 H (42.2-75.2) % Lymph % (Auto) 13.0 L (20.5-50.1) % [place] % (Auto) 4.3 (2-8) % Eos % (Auto) 0.3 L (1.0-3.0) % Baso % (Auto) 0.6 (0.0-1.0) % Sodium 145 (136-145) mmol/L Potassium 3.6 (3.5-5.1) mmol/L Chloride 107 (98-107) mmol/L Carbon Dioxide 26 (21-32) mmol/L Anion Gap 15.6 H (7-13) mEq/L BUN 26 H (7-18) mg/dL Creatinine 1.30 H (0.55-1.02) mg/dL Est Cr Clr Drug Dosing 23.66 mL/min Estimated GFR (MDRD) 39 BUN/Creatinine Ratio 20.0 (No establ ref range) Glucose 145 H (70-99) mg/dL Lactic Acid (0.4-2.0) mmol/L Calcium 9.3 (8.5-10.1) mg/dL Total Bilirubin 0.5 (0.2-1.0) mg/dL AST 17 (15-37) U/L ALT 20 (14-59) U/L Alkaline Phosphatase 78 (46-116) U/L Troponin I High Sens 39 (<=51) pg/mL Total Protein 7.7 (6.4-8.2) g/dL Albumin 3.5 (3.4-5.0) g/dL Globulin 4.2 Albumin/Globulin Ratio 0.8 Urine Color (YELLOW) Urine Appearance (CLEAR) Urine pH (5.0-9.0) Ur Specific [place] (1.005-1.030) Urine Protein (NEGATIVE) Urine Glucose (UA) (NEGATIVE) Urine Ketones (NEGATIVE) Urine Occult Blood (NEGATIVE) Urine Nitrite (NEGATIVE) Urine Bilirubin (NEGATIVE) Urine Urobilinogen (0.2-1.0) mg/dL Ur Leukocyte Esterase (NEGATIVE) Urine RBC (0-5) /HPF Urine WBC (0-5/HPF) /HPF Ur Epithelial Cells (NOT SEEN) /HPF Urine Bacteria (0-FEW/HPF) /HPF Influenza Type A RNA Negative (NEGATIVE) Influenza Type B RNA Negative (NEGATIVE) SARS-CoV-2 RNA (ANIKA) Negative (NEGATIVE) 07/07/21 07/07/21 Range/Units 12:29 12:30 WBC (5.0-10.0) 10^3/uL RBC (4.2-5.4) 10^6/uL Hgb (12.0-16.0) g/dL Hct (37.0-47.0) % MCV (80-100) fL MCH (27.0-34.0) pg MCHC (33.0-35.0) g/dL Plt Count (150-450) 10^3/uL Neut % (Auto) (42.2-75.2) % Lymph % (Auto) (20.5-50.1) % [place] % (Auto) (2-8) % Eos % (Auto) (1.0-3.0) % Baso % (Auto) (0.0-1.0) % Sodium (136-145) mmol/L Potassium (3.5-5.1) mmol/L Chloride (98-107) mmol/L Carbon Dioxide (21-32) mmol/L Anion Gap (7-13) mEq/L BUN (7-18) mg/dL Creatinine (0.55-1.02) mg/dL Est Cr Clr Drug Dosing mL/min Estimated GFR (MDRD) BUN/Creatinine Ratio (No establ ref range) Glucose (70-99) mg/dL Lactic Acid 1.2 (0.4-2.0) mmol/L Calcium (8.5-10.1) mg/dL Total Bilirubin (0.2-1.0) mg/dL AST (15-37) U/L ALT (14-59) U/L Alkaline Phosphatase (46-116) U/L Troponin I High Sens (<=51) pg/mL Total Protein (6.4-8.2) g/dL Albumin (3.4-5.0) g/dL Globulin Albumin/Globulin Ratio Urine Color Yellow (YELLOW) Urine Appearance Cloudy (CLEAR) Urine pH 6.5 (5.0-9.0) Ur Specific [place] 1.020 (1.005-1.030) Urine Protein 100 H (NEGATIVE) Urine Glucose (UA) Negative (NEGATIVE) Urine Ketones Negative (NEGATIVE) Urine Occult Blood Trace-lysed H (NEGATIVE) Urine Nitrite Positive H (NEGATIVE) Urine Bilirubin Negative (NEGATIVE) Urine Urobilinogen 0.2 (0.2-1.0) mg/dL Ur Leukocyte Esterase Small H (NEGATIVE) Urine RBC 0-5 (0-5) /HPF Urine WBC 40-50 H (0-5/HPF) /HPF Ur Epithelial Cells Few (NOT SEEN) /HPF Urine Bacteria Many H (0-FEW/HPF) /HPF Influenza Type A RNA (NEGATIVE) Influenza Type B RNA (NEGATIVE) SARS-CoV-2 RNA (ANIKA) (NEGATIVE) Result Diagrams: 07/07/21 12:29 07/07/21 12:29 - Problem List (1) Atrial fibrillation with RVR SNOMED Code(s): 329930518039868 ICD Code: I48.91 - UNSPECIFIED ATRIAL FIBRILLATION Status: Acute Current Visit: No (2) CKD (chronic kidney disease) stage 3, GFR 30-59 ml/min SNOMED Code(s): 536013357 ICD Code: N18.3 - CHRONIC KIDNEY DISEASE, STAGE 3 (MODERATE) * DO NOT USE * Status: Acute Current Visit: No (3) Diabetes SNOMED Code(s): 80997084 ICD Code: E11.9 - TYPE 2 DIABETES MELLITUS WITHOUT COMPLICATIONS Status: Acute Current Visit: No (4) HTN (hypertension) SNOMED Code(s): 23487834 ICD Code: I10 - ESSENTIAL (PRIMARY) HYPERTENSION Status: Acute Current Visit: No (5) UTI (urinary tract infection) SNOMED Code(s): 20842400 ICD Code: N39.0 - URINARY TRACT INFECTION, SITE NOT SPECIFIED Status: Acute Current Visit: No Qualifiers: Urinary tract infection type: site unspecified Hematuria presence: with hematuria Qualified Code(s): N39.0 - Urinary tract infection, site not specified; R31.9 - Hematuria, unspecified Problem List Initiated/Reviewed/Updated: Yes Orders Last 24hrs: Active Orders 24 hr Category Date Time Status Admission Diagnosis [ADT] Urgent ADT 07/07/21 15:44 Ordered Admission Status [Patient Status] [ADT] Urgent ADT 07/07/21 15:44 Active Antiembolic Devices [RC] PER UNIT ROUTINE Care 07/07/21 17:12 Ordered Oxygen Therapy [RC] PRN Care 07/07/21 17:11 Ordered Peripheral IV Care [RC] . DIRECTED Care 07/07/21 17:13 Ordered RT Aerosol Therapy [RC] ASDIRECTED Care 07/07/21 17:11 Ordered Up With Assistance [RC] ASDIRECTED Care 07/07/21 17:11 Ordered VTE/DVT Education [RC] PER UNIT ROUTINE Care 07/07/21 17:11 Ordered Vital Signs [RC] Q4H Care 07/07/21 17:11 Ordered Regular Diet [DIET] Diet 07/07/21 Dinner Ordered BASIC METABOLIC PANEL,BMP [CHEM] AM Lab 07/08/21 05:11 Ordered CBC WITH AUTO DIFF [HEME] AM Lab 07/08/21 05:11 Ordered CULTURE BLOOD [BC] Stat Lab 07/07/21 12:29 Received CULTURE URINE [RM] Urgent Lab 07/07/21 12:30 Received Acetaminophen [TylenoL] Med 07/07/21 17:11 Ordered 650 mg PO Q4H PRN Apixaban [Eliquis] Med 07/07/21 21:00 Active 5 mg PO BID Budesonide [Pulmicort] Med 07/07/21 18:00 Ordered 0.5 mg NEB BIDRT Dextromethorphan/guaiFENesin [Robitussin DM] Med 07/07/21 16:40 Active 5 ml PO Q6H PRN Diltiazem 125 mg Med 07/07/21 13:40 Active Sodium Chloride 0.9% [Normal Saline] 100 ml IV ASDIRECTED Docusate Sodium [Colace] Med 07/07/21 17:11 Ordered 100 mg PO BID PRN Gabapentin [Neurontin] Med 07/07/21 21:00 Ordered 100 mg PO BID Levothyroxine Med 07/08/21 06:00 Active 75 mcg PO ACBREAKFAST Losartan [Cozaar] Med 07/08/21 09:00 Active 50 mg PO DAILY Magnesium Oxide [Magnesium Oxide] Med 07/07/21 21:00 Ordered 400 mg PO BEDTIME Metoprolol Tartrate [Lopressor] Med 07/07/21 17:00 Active 50 mg PO BID Ondansetron [Zofran] Med 07/07/21 17:11 Ordered 4 mg IVPUSH Q6H PRN Sodium Chloride 0.9% [Saline Flush] Med 07/07/21 17:11 Ordered 10 ml FLUSH ASDIRECTED PRN Temazepam [Restoril] Med 07/07/21 17:11 Ordered 15 mg PO BEDTIME PRN cefTRIAXone [Rocephin] 1 gm Med 07/08/21 14:00 Active Sodium Chloride 0.9% [Normal Saline AdvBag] 50 ml IV Q24H cloNIDine [Catapres] Med 07/07/21 21:00 Active 0.2 mg PO BID hydroCHLOROthiazide Med 07/08/21 09:00 Active 25 mg PO DAILY Antiembolic Hose [OM.PC] Per Unit Routine Oth 07/07/21 17:12 Ordered Peripheral IV Insertion Adult [OM.PC] Routine Oth 07/07/21 17:11 Ordered Saline Lock Insert [OM.PC] Routine Oth 07/07/21 17:11 Ordered Resuscitation Status Routine Resus Stat 07/07/21 17:11 Ordered Medication Orders Apixaban (Apixaban 5 Mg Tab) 5 mg PO BID JOSE LUIS Budesonide (Budesonide 0.5 Mg/2 Ml Neb Susp) 0.5 mg NEB BIDRT JOSE LUIS Clonidine HCl (Clonidine 0.1 Mg Tab) 0.2 mg PO BID JOSE LUIS Gabapentin (Gabapentin 100 Mg Cap) 100 mg PO BID JOSE LUIS Guaifenesin/Dextromethorphan (Guaifenesin/Dextromethorphan 100-10 Mg/5 Ml Soln 5 Ml Cup) 5 ml PO Q6H PRN PRN Reason: Congestion Hydrochlorothiazide (Hydrochlorothiazide 25 Mg Tab) 25 mg PO DAILY JOSE LUIS Diltiazem HCl 125 mg/ Sodium (Chloride) 125 mls @ 4.167 mls/hr IV ASDIRECTED JOSE LUIS; Protocol Last Infusion: 07/07/21 15:44 Dose: 15 mls/hr Documented by: Infusion: 07/07/21 14:43 Dose: 10 mls/hr Documented by: Infusion: 07/07/21 14:16 Dose: 7 mls/hr Documented by: Infusion: 07/07/21 13:59 Dose: 5 mls/hr Documented by: Admin: 07/07/21 13:49 Dose: 4.167 mls/hr Documented by: RITA Ceftriaxone Sodium 1 gm/ (Sodium Chloride) 50 mls @ 100 mls/hr IV Q24H JOSE LUIS Levothyroxine Sodium (Levothyroxine 75 Mcg Tab) 75 mcg PO ACBREAKFAST JOSE LUIS Losartan Potassium (Losartan 50 Mg Tab) 50 mg PO DAILY JOSE LUIS Metoprolol Tartrate (Metoprolol Tartrate 50 Mg Tab) 50 mg PO BID [facility] Non-Formulary Medication (Magnesium Oxide [Magnesium Oxide]) 400 mg PO BEDTIME [facility] Assessment/Plan Comment:: presented with chills, diaphoresis, tachycardia uti obtain urine cx treat empirically with ceftriaxone rapid afib improved with cardizem IV drip start po metoprolol try to taper cardizem IV as possible stop asa CHADS SCore >4 (agfe, female, htn) start apixaban htn treat with clonidine, hctz, losartan stop amlodipine add PO metoprolol dm diet controlled chronic back pain try to limit narcs with her age limit NSAIDS with apixaban use tylenol prn she opted for DNR code status
[2021-07-07] MEDS ORDERED: Acetaminophen/HYDROcodone 325-10 MG Tab PO PRN (17:19)
[2021-07-07] MEDS: Metoprolol Tartrate 50 MG Tab PO SCH (17:44)
[2021-07-07] MEDS: Gabapentin 100 MG Cap PO SCH (20:48)
[2021-07-07] MEDS: Apixaban 5 MG Tab PO SCH (20:48)
[2021-07-07] MEDS: cloNIDine 0.1 MG Tab PO SCH (20:49)
[2021-07-07] MEDS ORDERED: Metoprolol Tartrate 25 MG Tab PO SCH (21:00)
[2021-07-08] MEDS: Temazepam 15 MG Cap PO PRN ×2 (00:54→21:47)
[2021-07-08] MEDS: Levothyroxine 75 MCG Tab PO SCH (06:30)
[2021-07-08] MEDS: Budesonide 0.5 MG/2 ML Neb Susp NEB SCH ×3 (07:01→18:20)
[2021-07-08 07:11] LABS: ANION GAP 13.3 mEq/L (7-13)
[2021-07-08] MEDS: cloNIDine 0.1 MG Tab PO SCH ×2 (08:15→21:00)
[2021-07-08] MEDS: Metoprolol Tartrate 50 MG Tab PO SCH ×2 (08:15→20:59)
[2021-07-08] MEDS: Losartan 50 MG Tab PO SCH (08:16)
[2021-07-08] MEDS: Gabapentin 100 MG Cap PO SCH ×2 (08:17→20:59)
[2021-07-08] MEDS: Apixaban 5 MG Tab PO SCH ×2 (08:19→20:59)
[2021-07-08] MEDS: Hydrochlorothiazide 25 MG Tab PO SCH (08:19)
[2021-07-08] MEDS ORDERED: Potassium Chloride 10 MEQ Tab.ER PO ONE (12:09)
--- NOTE | 2021-07-08 13:02 | PCM.PN ---
- General Info Date of Service: 07/08/21 Admission Dx/Problem (Free Text): Admission Diagnosis/Problem Admission Diagnosis/Problem Atrial fibrillation with rapid ventricular response Subjective Update: feeling well no cp, no palpitation Functional Status: Reports: Pain Controlled - Review of Systems General: Reports: Weakness. Denies: Fever Pulmonary: Denies: Shortness of Breath Cardiovascular: Denies: Chest Pain, Edema Gastrointestinal: Denies: Abdominal Pain Genitourinary: Reports: Dysuria - Patient Data Vitals - Most Recent: Last Vital Signs Temp 97.8 F 07/08/21 12:44 Pulse 76 07/08/21 12:44 Resp 20 07/08/21 12:44 BP 135/45 L 07/08/21 12:44 Pulse Ox 92 L 07/08/21 12:44 Weight - Most Recent: 180 lb I&O - Last 24 Hours: Intake & Output 07/07/21 07/08/21 07/08/21 22:59 06:59 14:59 Intake Total 250 Balance 250 Lab Results Last 24 Hours: Laboratory Results - last 24 hr 07/07/21 07/07/21 07/07/21 Range/Units 11:54 12:29 12:29 WBC (5.0-10.0) 10^3/uL RBC (4.2-5.4) 10^6/uL Hgb (12.0-16.0) g/dL Hct (37.0-47.0) % MCV (80-100) fL MCH (27.0-34.0) pg MCHC (33.0-35.0) g/dL Plt Count (150-450) 10^3/uL Neut % (Auto) (42.2-75.2) % Lymph % (Auto) (20.5-50.1) % [place] % (Auto) (2-8) % Eos % (Auto) (1.0-3.0) % Baso % (Auto) (0.0-1.0) % Sodium 145 (136-145) mmol/L Potassium 3.6 (3.5-5.1) mmol/L Chloride 107 (98-107) mmol/L Carbon Dioxide 26 (21-32) mmol/L Anion Gap 15.6 H (7-13) mEq/L BUN 26 H (7-18) mg/dL Creatinine 1.30 H (0.55-1.02) mg/dL Est Cr Clr Drug Dosing 23.66 mL/min Estimated GFR (MDRD) 39 BUN/Creatinine Ratio 20.0 (No establ ref range) Glucose 145 H (70-99) mg/dL Lactic Acid 1.2 (0.4-2.0) mmol/L Calcium 9.3 (8.5-10.1) mg/dL Total Bilirubin 0.5 (0.2-1.0) mg/dL AST 17 (15-37) U/L ALT 20 (14-59) U/L Alkaline Phosphatase 78 (46-116) U/L Troponin I High Sens 39 (<=51) pg/mL Total Protein 7.7 (6.4-8.2) g/dL Albumin 3.5 (3.4-5.0) g/dL Globulin 4.2 Albumin/Globulin Ratio 0.8 Influenza Type A RNA Negative (NEGATIVE) Influenza Type B RNA Negative (NEGATIVE) SARS-CoV-2 RNA (ANIKA) Negative (NEGATIVE) 07/08/21 07/08/21 Range/Units 06:40 06:40 WBC 14.5 H (5.0-10.0) 10^3/uL RBC 4.60 (4.2-5.4) 10^6/uL Hgb 13.7 (12.0-16.0) g/dL Hct 42.4 (37.0-47.0) % MCV 92.2 (80-100) fL MCH 29.8 (27.0-34.0) pg MCHC 32.3 L (33.0-35.0) g/dL Plt Count 269 (150-450) 10^3/uL Neut % (Auto) 79.9 H (42.2-75.2) % Lymph % (Auto) 10.0 L (20.5-50.1) % [place] % (Auto) 7.0 (2-8) % Eos % (Auto) 2.4 (1.0-3.0) % Baso % (Auto) 0.7 (0.0-1.0) % Sodium 145 (136-145) mmol/L Potassium 3.3 L (3.5-5.1) mmol/L Chloride 108 H (98-107) mmol/L Carbon Dioxide 27 (21-32) mmol/L Anion Gap 13.3 H (7-13) mEq/L BUN 24 H (7-18) mg/dL Creatinine 1.22 H (0.55-1.02) mg/dL Est Cr Clr Drug Dosing 25.21 mL/min Estimated GFR (MDRD) 42 BUN/Creatinine Ratio (No establ ref range) Glucose 117 H (70-99) mg/dL Lactic Acid (0.4-2.0) mmol/L Calcium 8.7 (8.5-10.1) mg/dL Total Bilirubin (0.2-1.0) mg/dL AST (15-37) U/L ALT (14-59) U/L Alkaline Phosphatase (46-116) U/L Troponin I High Sens (<=51) pg/mL Total Protein (6.4-8.2) g/dL Albumin (3.4-5.0) g/dL Globulin Albumin/Globulin Ratio Influenza Type A RNA (NEGATIVE) Influenza Type B RNA (NEGATIVE) SARS-CoV-2 RNA (ANIKA) (NEGATIVE) Danilo Results Last 24 Hours: Microbiology 07/07/21 12:29 Aerobic Blood Culture - Preliminary Blood - Arm, Right NO GROWTH AFTER 1 DAY Anaerobic Blood Culture - Preliminary NO GROWTH AFTER 1 DAY 07/07/21 12:30 Urine Culture - Preliminary Urine, Voided Med Orders - Current: Current Medications Acetaminophen (Acetaminophen 325 Mg Tab) 650 mg PO Q4H PRN PRN Reason: Pain (Mild 1-3)/fever Last Admin: 07/08/21 08:15 Dose: 650 mg Documented by: Hydrocodone Bitart/Acetaminophen (Acetaminophen/Hydrocodone 325-10 Mg Tab) 1 tab PO Q6H PRN PRN Reason: moderate pain Apixaban (Apixaban 5 Mg Tab) 5 mg PO BID [facility] Last Admin: 07/08/21 08:19 Dose: 5 mg Documented by: Budesonide (Budesonide 0.5 Mg/2 Ml Neb Susp) 0.5 mg NEB BIDRT [facility] Last Admin: 07/08/21 08:00 Dose: 0.5 mg Documented by: Clonidine HCl (Clonidine 0.1 Mg Tab) 0.2 mg PO BID [facility] Last Admin: 07/08/21 08:15 Dose: 0.2 mg Documented by: Docusate Sodium (Docusate Sodium 100 Mg Cap) 100 mg PO BID PRN PRN Reason: Constipation Gabapentin (Gabapentin 100 Mg Cap) 100 mg PO BID [facility] Last Admin: 07/08/21 08:17 Dose: 100 mg Documented by: Guaifenesin/Dextromethorphan (Guaifenesin/Dextromethorphan 100-10 Mg/5 Ml Soln 5 Ml Cup) 5 ml PO Q6H PRN PRN Reason: Congestion Hydrochlorothiazide (Hydrochlorothiazide 25 Mg Tab) 25 mg PO DAILY [facility] Last Admin: 07/08/21 08:19 Dose: 25 mg Documented by: Ceftriaxone Sodium 1 gm/ (Sodium Chloride) 50 mls @ 100 mls/hr IV Q24H [facility] Levothyroxine Sodium (Levothyroxine 75 Mcg Tab) 75 mcg PO ACBREAKFAST [facility] Last Admin: 07/08/21 06:30 Dose: 75 mcg Documented by: Losartan Potassium (Losartan 50 Mg Tab) 50 mg PO DAILY [facility] Last Admin: 07/08/21 08:16 Dose: 50 mg Documented by: Magnesium Oxide (Magnesium Oxide 250 Mg Tab) 500 mg PO BEDTIME [facility] Metoprolol Tartrate (Metoprolol Tartrate 50 Mg Tab) 50 mg PO BID [facility] Last Admin: 07/08/21 08:15 Dose: 50 mg Documented by: Ondansetron HCl (Ondansetron 4 Mg/2 Ml Sdv) 4 mg IVPUSH Q6H PRN PRN Reason: Nausea/Vomiting Sodium Chloride (Sodium Chloride 0.9% 10 Ml Syringe) 10 ml FLUSH ASDIRECTED PRN PRN Reason: Keep Vein Open Temazepam (Temazepam 15 Mg Cap) 15 mg PO BEDTIME PRN PRN Reason: Sleep Last Admin: 07/08/21 00:54 Dose: 15 mg Documented by: Discontinued Medications Diltiazem HCl (Diltiazem 25 Mg/5 Ml Sdv) 20 mg IVPUSH ONETIME ONE Stop: 07/07/21 12:41 Last Admin: 07/07/21 12:47 Dose: 20 mg Documented by: Diltiazem HCl 125 mg/ Sodium (Chloride) 150 mls @ 5 mls/hr IV ASDIRECTED [facility] Ceftriaxone Sodium 1 gm/ (Sodium Chloride) 50 mls @ 100 mls/hr IV ONETIME ONE Stop: 07/07/21 14:00 Last Admin: 07/07/21 13:52 Dose: 100 mls/hr Documented by: Diltiazem HCl 125 mg/ Sodium (Chloride) 125 mls @ 4.167 mls/hr IV ASDIRECTED [facility]; Protocol Last Infusion: 07/07/21 19:28 Dose: 5 mls/hr Documented by: Ceftriaxone Sodium 1 gm/ (Sodium Chloride) 50 mls @ 100 mls/hr IV Q24H [facility] Metoprolol Tartrate (Metoprolol Tartrate 25 Mg Tab) 50 mg PO BID [facility] Potassium Chloride (Potassium Chloride 10 Meq Tab.Er) 40 meq PO ONETIME ONE Stop: 07/08/21 12:10 - Exam Quality Assessment: No: Supplemental Oxygen General: Alert, Oriented HEENT: Pupils Equal Neck: Supple Lungs: Normal Respiratory Effort, Decreased Breath Sounds Cardiovascular: Regular Rate, Regular Rhythm GI/Abdominal Exam: Normal Bowel Sounds, Soft, Non-Tender Extremities: No Pedal Edema - Patient Data Lab Results Last 24 hrs: Laboratory Results - last 24 hr 07/07/21 07/07/21 07/07/21 Range/Units 11:54 12:29 12:29 WBC (5.0-10.0) 10^3/uL RBC (4.2-5.4) 10^6/uL Hgb (12.0-16.0) g/dL Hct (37.0-47.0) % MCV (80-100) fL MCH (27.0-34.0) pg MCHC (33.0-35.0) g/dL Plt Count (150-450) 10^3/uL Neut % (Auto) (42.2-75.2) % Lymph % (Auto) (20.5-50.1) % [place] % (Auto) (2-8) % Eos % (Auto) (1.0-3.0) % Baso % (Auto) (0.0-1.0) % Sodium 145 (136-145) mmol/L Potassium 3.6 (3.5-5.1) mmol/L Chloride 107 (98-107) mmol/L Carbon Dioxide 26 (21-32) mmol/L Anion Gap 15.6 H (7-13) mEq/L BUN 26 H (7-18) mg/dL Creatinine 1.30 H (0.55-1.02) mg/dL Est Cr Clr Drug Dosing 23.66 mL/min Estimated GFR (MDRD) 39 BUN/Creatinine Ratio 20.0 (No establ ref range) Glucose 145 H (70-99) mg/dL Lactic Acid 1.2 (0.4-2.0) mmol/L Calcium 9.3 (8.5-10.1) mg/dL Total Bilirubin 0.5 (0.2-1.0) mg/dL AST 17 (15-37) U/L ALT 20 (14-59) U/L Alkaline Phosphatase 78 (46-116) U/L Troponin I High Sens 39 (<=51) pg/mL Total Protein 7.7 (6.4-8.2) g/dL Albumin 3.5 (3.4-5.0) g/dL Globulin 4.2 Albumin/Globulin Ratio 0.8 Influenza Type A RNA Negative (NEGATIVE) Influenza Type B RNA Negative (NEGATIVE) SARS-CoV-2 RNA (ANIKA) Negative (NEGATIVE) 07/08/21 07/08/21 Range/Units 06:40 06:40 WBC 14.5 H (5.0-10.0) 10^3/uL RBC 4.60 (4.2-5.4) 10^6/uL Hgb 13.7 (12.0-16.0) g/dL Hct 42.4 (37.0-47.0) % MCV 92.2 (80-100) fL MCH 29.8 (27.0-34.0) pg MCHC 32.3 L (33.0-35.0) g/dL Plt Count 269 (150-450) 10^3/uL Neut % (Auto) 79.9 H (42.2-75.2) % Lymph % (Auto) 10.0 L (20.5-50.1) % [place] % (Auto) 7.0 (2-8) % Eos % (Auto) 2.4 (1.0-3.0) % Baso % (Auto) 0.7 (0.0-1.0) % Sodium 145 (136-145) mmol/L Potassium 3.3 L (3.5-5.1) mmol/L Chloride 108 H (98-107) mmol/L Carbon Dioxide 27 (21-32) mmol/L Anion Gap 13.3 H (7-13) mEq/L BUN 24 H (7-18) mg/dL Creatinine 1.22 H (0.55-1.02) mg/dL Est Cr Clr Drug Dosing 25.21 mL/min Estimated GFR (MDRD) 42 BUN/Creatinine Ratio (No establ ref range) Glucose 117 H (70-99) mg/dL Lactic Acid (0.4-2.0) mmol/L Calcium 8.7 (8.5-10.1) mg/dL Total Bilirubin (0.2-1.0) mg/dL AST (15-37) U/L ALT (14-59) U/L Alkaline Phosphatase (46-116) U/L Troponin I High Sens (<=51) pg/mL Total Protein (6.4-8.2) g/dL Albumin (3.4-5.0) g/dL Globulin Albumin/Globulin Ratio Influenza Type A RNA (NEGATIVE) Influenza Type B RNA (NEGATIVE) SARS-CoV-2 RNA (ANIKA) (NEGATIVE) Result Diagrams: 07/08/21 06:40 07/08/21 06:40 Danilo Results Last 24 hrs: Microbiology 07/07/21 12:29 Aerobic Blood Culture - Preliminary Blood - Arm, Right NO GROWTH AFTER 1 DAY Anaerobic Blood Culture - Preliminary NO GROWTH AFTER 1 DAY 07/07/21 12:30 Urine Culture - Preliminary Urine, Voided Sepsis Event Note - Evaluation Sepsis Screening Result: No Definite Risk - Focused Exam Vital Signs: Vital Signs Temp Pulse Pulse Resp BP BP Pulse Ox 07/08/21 12:44 97.8 F 76 20 135/45 L 92 L 07/08/21 08:16 117/64 07/08/21 08:15 85 117/64 07/08/21 08:00 90 07/08/21 07:50 100.0 F 85 20 177/64 H 91 L 07/08/21 05:00 96.8 F L 77 22 H 158/57 H 93 L 07/08/21 01:00 98.1 F 61 20 158/55 H 91 L - Problem List & Annotations (1) Atrial fibrillation with RVR SNOMED Code(s): 044206260508211 Code(s): I48.91 - UNSPECIFIED ATRIAL FIBRILLATION Status: Acute Current Visit: No (2) CKD (chronic kidney disease) stage 3, GFR 30-59 ml/min SNOMED Code(s): 443332174 Code(s): N18.3 - CHRONIC KIDNEY DISEASE, STAGE 3 (MODERATE) * DO NOT USE * Status: Acute Current Visit: No (3) Diabetes SNOMED Code(s): 54555834 Code(s): E11.9 - TYPE 2 DIABETES MELLITUS WITHOUT COMPLICATIONS Status: Acute Current Visit: No (4) HTN (hypertension) SNOMED Code(s): 24907226 Code(s): I10 - ESSENTIAL (PRIMARY) HYPERTENSION Status: Acute Current Visit: No (5) UTI (urinary tract infection) SNOMED Code(s): 37832604 Code(s): N39.0 - URINARY TRACT INFECTION, SITE NOT SPECIFIED Status: Acute Current Visit: No Qualifiers: Urinary tract infection type: site unspecified Hematuria presence: with hematuria Qualified Code(s): N39.0 - Urinary tract infection, site not specified; R31.9 - Hematuria, unspecified - Problem List Review Problem List Initiated/Reviewed/Updated: Yes - My Orders Last 24 Hours: My Active Orders 07/07/21 16:40 Dextromethorphan/guaiFENesin [Robitussin DM] 5 ml PO Q6H PRN 07/07/21 17:00 Metoprolol Tartrate [Lopressor] 50 mg PO BID 07/07/21 17:11 Oxygen Therapy [RC] PRN RT Aerosol Therapy [RC] 07,18 Up With Assistance [RC] ASDIRECTED VTE/DVT Education [RC] 08,20 Vital Signs [RC] Q4H Acetaminophen [TylenoL] 650 mg PO Q4H PRN Docusate Sodium [Colace] 100 mg PO BID PRN Ondansetron [Zofran] 4 mg IVPUSH Q6H PRN Sodium Chloride 0.9% [Saline Flush] 10 ml FLUSH ASDIRECTED PRN Temazepam [Restoril] 15 mg PO BEDTIME PRN Peripheral IV Insertion Adult [OM.PC] Routine Saline Lock Insert [OM.PC] Routine Resuscitation Status Routine 07/07/21 17:12 Antiembolic Devices [RC] 08,20 Antiembolic Hose [OM.PC] Per Unit Routine 07/07/21 17:13 Peripheral IV Care [RC] 00,04,08,12,16,20 07/07/21 Dinner Regular Diet [DIET] 07/07/21 17:19 Acetaminophen/HYDROcodone [[place] 325-10 MG] 1 tab PO Q6H PRN 07/07/21 17:35 Cardiac Monitoring [RC] 08,20 07/07/21 18:00 Budesonide [Pulmicort] 0.5 mg NEB BIDRT 07/07/21 21:00 Apixaban [Eliquis] 5 mg PO BID Gabapentin [Neurontin] 100 mg PO BID cloNIDine [Catapres] 0.2 mg PO BID 07/08/21 06:00 Levothyroxine 75 mcg PO ACBREAKFAST 07/08/21 09:00 Losartan [Cozaar] 50 mg PO DAILY hydroCHLOROthiazide 25 mg PO DAILY 07/08/21 09:04 Consult to Physical Therapy [PT Evaluation and Treatment] [CONS] Routine OT Evaluation and Treatment [CONS] Routine 07/08/21 14:00 cefTRIAXone [Rocephin] 1 gm Sodium Chloride 0.9% [Normal Saline AdvBag] 50 ml IV Q24H 07/08/21 21:00 Magnesium Oxide 500 mg PO BEDTIME 07/09/21 05:15 BASIC METABOLIC PANEL,BMP [CHEM] AM CBC WITH AUTO DIFF [HEME] AM - Plan Plan:: presented with chills, diaphoresis, tachycardia uti urine cx: pending treat empirically with ceftriaxone rapid afib improved with cardizem IV drip started po metoprolol converted back to NS stop asa CHADS SCore >4 (agfe, female, htn) started apixaban htn treat with clonidine, hctz, losartan stop amlodipine added PO metoprolol hypokalemia will replace recheck in AM dm diet controlled chronic back pain try to limit narcs with her age limit NSAIDS with apixaban use tylenol prn she opted for DNR code status on admission pt/ot evaluation and treatment
[2021-07-08] MEDS: cefTRIAXone 1 GM in Sodium Chloride 0.9% 50 ML IV SCH (13:49)
[2021-07-08] MEDS ORDERED: cefTRIAXone 1 GM in Sodium Chloride 0.9% 50 ML IV SCH (16:45)
[2021-07-09] MEDS: Levothyroxine 75 MCG Tab PO SCH (05:37)
[2021-07-09 07:01] LABS: ANION GAP 10.8 mEq/L (7-13)
[2021-07-09] MEDS: Budesonide 0.5 MG/2 ML Neb Susp NEB SCH ×2 (08:01→19:29)
[2021-07-09] MEDS: Apixaban 5 MG Tab PO SCH ×2 (09:58→21:17)
[2021-07-09] MEDS: Metoprolol Tartrate 50 MG Tab PO SCH ×2 (09:58→21:17)
[2021-07-09] MEDS: Gabapentin 100 MG Cap PO SCH ×2 (09:58→21:19)
[2021-07-09] MEDS: cloNIDine 0.1 MG Tab PO SCH ×2 (09:58→21:19)
[2021-07-09] MEDS: Hydrochlorothiazide 25 MG Tab PO SCH (09:59)
[2021-07-09] MEDS: Losartan 50 MG Tab PO SCH (09:59)
[2021-07-09] MEDS: cefTRIAXone 1 GM in Sodium Chloride 0.9% 50 ML IV SCH (14:29)
[2021-07-09] MEDS: Temazepam 15 MG Cap PO PRN (21:27)
--- NOTE | 2021-07-09 22:41 | PCM.PN ---
- General Info Date of Service: 07/09/21 - Patient Data Vitals - Most Recent: Last Vital Signs Temp 98 F 07/09/21 20:00 Pulse 66 07/09/21 21:17 Resp 22 H 07/09/21 20:00 BP 129/44 L 07/09/21 21:19 Pulse Ox 96 07/09/21 20:00 Weight - Most Recent: 180 lb I&O - Last 24 Hours: Intake & Output 07/09/21 07/09/21 07/09/21 06:59 14:59 22:59 Intake Total 1270 500 Balance 1270 500 Lab Results Last 24 Hours: Laboratory Results - last 24 hr 07/09/21 07/09/21 Range/Units 06:28 06:28 WBC 8.0 (5.0-10.0) 10^3/uL RBC 4.16 L (4.2-5.4) 10^6/uL Hgb 12.4 (12.0-16.0) g/dL Hct 39.1 (37.0-47.0) % MCV 94.0 (80-100) fL MCH 29.8 (27.0-34.0) pg MCHC 31.7 L (33.0-35.0) g/dL Plt Count 240 (150-450) 10^3/uL Neut % (Auto) 51.2 (42.2-75.2) % Lymph % (Auto) 29.3 (20.5-50.1) % [place] % (Auto) 10.3 H (2-8) % Eos % (Auto) 7.6 H (1.0-3.0) % Baso % (Auto) 1.6 H (0.0-1.0) % Sodium 145 (136-145) mmol/L Potassium 3.8 (3.5-5.1) mmol/L Chloride 111 H (98-107) mmol/L Carbon Dioxide 27 (21-32) mmol/L Anion Gap 10.8 (7-13) mEq/L BUN 33 H (7-18) mg/dL Creatinine 1.52 H (0.55-1.02) mg/dL Est Cr Clr Drug Dosing 20.23 mL/min Estimated GFR (MDRD) 32 Glucose 111 H (70-99) mg/dL Calcium 8.0 L (8.5-10.1) mg/dL Danilo Results Last 24 Hours: Microbiology 07/07/21 12:29 Aerobic Blood Culture - Preliminary Blood - Arm, Right NO GROWTH AFTER 2 DAYS Anaerobic Blood Culture - Preliminary NO GROWTH AFTER 2 DAYS 07/07/21 12:30 Urine Culture - Final Urine, Voided Escherichia Coli Med Orders - Current: Current Medications Acetaminophen (Acetaminophen 325 Mg Tab) 650 mg PO Q4H PRN PRN Reason: Pain (Mild 1-3)/fever Last Admin: 07/08/21 08:15 Dose: 650 mg Documented by: Hydrocodone Bitart/Acetaminophen (Acetaminophen/Hydrocodone 325-10 Mg Tab) 1 tab PO Q6H PRN PRN Reason: moderate pain Apixaban (Apixaban 5 Mg Tab) 5 mg PO BID [facility] Last Admin: 07/09/21 21:17 Dose: 5 mg Documented by: Budesonide (Budesonide 0.5 Mg/2 Ml Neb Susp) 0.5 mg NEB BIDRT [facility] Last Admin: 07/09/21 19:29 Dose: 0.5 mg Documented by: Clonidine HCl (Clonidine 0.1 Mg Tab) 0.2 mg PO BID [facility] Last Admin: 07/09/21 21:19 Dose: 0.2 mg Documented by: Docusate Sodium (Docusate Sodium 100 Mg Cap) 100 mg PO BID PRN PRN Reason: Constipation Gabapentin (Gabapentin 100 Mg Cap) 100 mg PO BID [facility] Last Admin: 07/09/21 21:19 Dose: 100 mg Documented by: Guaifenesin/Dextromethorphan (Guaifenesin/Dextromethorphan 100-10 Mg/5 Ml Soln 5 Ml Cup) 5 ml PO Q6H PRN PRN Reason: Congestion Hydrochlorothiazide (Hydrochlorothiazide 25 Mg Tab) 25 mg PO DAILY [facility] Last Admin: 07/09/21 09:59 Dose: 25 mg Documented by: Ceftriaxone Sodium 1 gm/ (Sodium Chloride) 50 mls @ 100 mls/hr IV Q24H [facility] Last Admin: 07/09/21 14:29 Dose: 100 mls/hr Documented by: Levothyroxine Sodium (Levothyroxine 75 Mcg Tab) 75 mcg PO ACBREAKFAST [facility] Last Admin: 07/09/21 05:37 Dose: 75 mcg Documented by: Losartan Potassium (Losartan 50 Mg Tab) 50 mg PO DAILY [facility] Last Admin: 07/09/21 09:59 Dose: 50 mg Documented by: Magnesium Oxide (Magnesium Oxide 250 Mg Tab) 500 mg PO BEDTIME [facility] Last Admin: 07/09/21 21:19 Dose: 500 mg Documented by: Metoprolol Tartrate (Metoprolol Tartrate 50 Mg Tab) 50 mg PO BID [facility] Last Admin: 07/09/21 21:17 Dose: 50 mg Documented by: Ondansetron HCl (Ondansetron 4 Mg/2 Ml Sdv) 4 mg IVPUSH Q6H PRN PRN Reason: Nausea/Vomiting Sodium Chloride (Sodium Chloride 0.9% 10 Ml Syringe) 10 ml FLUSH ASDIRECTED PRN PRN Reason: Keep Vein Open Temazepam (Temazepam 15 Mg Cap) 15 mg PO BEDTIME PRN PRN Reason: Sleep Last Admin: 07/09/21 21:27 Dose: 15 mg Documented by: Discontinued Medications Diltiazem HCl (Diltiazem 25 Mg/5 Ml Sdv) 20 mg IVPUSH ONETIME ONE Stop: 07/07/21 12:41 Last Admin: 07/07/21 12:47 Dose: 20 mg Documented by: Diltiazem HCl 125 mg/ Sodium (Chloride) 150 mls @ 5 mls/hr IV ASDIRECTED [facility] Ceftriaxone Sodium 1 gm/ (Sodium Chloride) 50 mls @ 100 mls/hr IV ONETIME ONE Stop: 07/07/21 14:00 Last Admin: 07/07/21 13:52 Dose: 100 mls/hr Documented by: Diltiazem HCl 125 mg/ Sodium (Chloride) 125 mls @ 4.167 mls/hr IV ASDIRECTED [facility]; Protocol Last Infusion: 07/07/21 19:28 Dose: 5 mls/hr Documented by: Ceftriaxone Sodium 1 gm/ (Sodium Chloride) 50 mls @ 100 mls/hr IV Q24H [facility] Metoprolol Tartrate (Metoprolol Tartrate 25 Mg Tab) 50 mg PO BID [facility] Potassium Chloride (Potassium Chloride 10 Meq Tab.Er) 40 meq PO ONETIME ONE Stop: 07/08/21 12:10 Last Admin: 07/08/21 13:50 Dose: 40 meq Documented by: - Patient Data Lab Results Last 24 hrs: Laboratory Results - last 24 hr 07/09/21 07/09/21 Range/Units 06:28 06:28 WBC 8.0 (5.0-10.0) 10^3/uL RBC 4.16 L (4.2-5.4) 10^6/uL Hgb 12.4 (12.0-16.0) g/dL Hct 39.1 (37.0-47.0) % MCV 94.0 (80-100) fL MCH 29.8 (27.0-34.0) pg MCHC 31.7 L (33.0-35.0) g/dL Plt Count 240 (150-450) 10^3/uL Neut % (Auto) 51.2 (42.2-75.2) % Lymph % (Auto) 29.3 (20.5-50.1) % [place] % (Auto) 10.3 H (2-8) % Eos % (Auto) 7.6 H (1.0-3.0) % Baso % (Auto) 1.6 H (0.0-1.0) % Sodium 145 (136-145) mmol/L Potassium 3.8 (3.5-5.1) mmol/L Chloride 111 H (98-107) mmol/L Carbon Dioxide 27 (21-32) mmol/L Anion Gap 10.8 (7-13) mEq/L BUN 33 H (7-18) mg/dL Creatinine 1.52 H (0.55-1.02) mg/dL Est Cr Clr Drug Dosing 20.23 mL/min Estimated GFR (MDRD) 32 Glucose 111 H (70-99) mg/dL Calcium 8.0 L (8.5-10.1) mg/dL Result Diagrams: 07/09/21 06:28 07/09/21 06:28 Danilo Results Last 24 hrs: Microbiology 07/07/21 12:29 Aerobic Blood Culture - Preliminary Blood - Arm, Right NO GROWTH AFTER 2 DAYS Anaerobic Blood Culture - Preliminary NO GROWTH AFTER 2 DAYS 07/07/21 12:30 Urine Culture - Final Urine, Voided Escherichia Coli Sepsis Event Note - Evaluation Sepsis Screening Result: No Definite Risk - Focused Exam Vital Signs: Vital Signs Temp Pulse Pulse Resp BP BP Pulse Ox 07/09/21 21:19 129/44 L 07/09/21 21:17 66 129/44 L 07/09/21 20:00 98 F 65 22 H 138/60 96 07/09/21 16:00 97.2 F 60 22 H 120/44 L 95 07/09/21 12:00 98.7 F 67 22 H 148/61 H 93 L - Problem List Review Problem List Initiated/Reviewed/Updated: Yes - My Orders Last 24 Hours: My Active Orders 07/09/21 10:41 Bladder Scan [RC] ASDIRECTED 07/09/21 10:42 Communication Order [RC] ASDIRECTED - Plan Plan:: Gay was admitted on 07/07 for chills, dysuria and urine frequency. Was also noted to have HR in 140s. Acute cystitis without hematuria. Urine culture grew E coli. Treated with ceftr iaxone 07/07-. A-fib with RVR. New diagnosis. Initially required diltiazem infusion, then metoprolol PO. Reverted by sinus rhythm by 07/09. CHADS2 score at least 3, possibly 5 (?h/o stroke). Metoprolol was started; I discussed its use with at least twice daily BP and pulse monitoring (call primary provider or visit urgent care if SBP <110 or HR <55). Anticoag with eliquis was started; I discussed its use with extra caution while ambulating, prevention of falls and watching out for easy bleeding and bruising; she consented to its use. Hypertension. Stopped home HCTZ in setting of starting metoprolol. CKD stage 3. Best to avoid NSAIDs (for chronic back pain). DVT px: eliquis Code: DNR Probable discharge in 1-2 days.
[2021-07-10] MEDS: Levothyroxine 75 MCG Tab PO SCH (06:19)
[2021-07-10] MEDS: Budesonide 0.5 MG/2 ML Neb Susp NEB SCH (08:33)
[2021-07-10] MEDS: cloNIDine 0.1 MG Tab PO SCH (09:14)
[2021-07-10] MEDS: Gabapentin 100 MG Cap PO SCH (09:15)
[2021-07-10] MEDS: Apixaban 5 MG Tab PO SCH (09:15)
[2021-07-10] MEDS: Losartan 50 MG Tab PO SCH (09:16)
[2021-07-10] MEDS: Metoprolol Tartrate 50 MG Tab PO SCH (09:16)
[2021-07-10] MEDS: cefTRIAXone 1 GM in Sodium Chloride 0.9% 50 ML IV SCH ×2 (12:25→13:37)
--- NOTE | 2021-07-10 13:23 | PCM.DCSUM1 ---
Discharge Summary - Hospital Course Free Text/Narrative:: Gay was admitted on 07/07 for chills, dysuria and urine frequency. Was also noted to have HR in 140s. Acute cystitis without hematuria. Urine culture grew E coli. Treated with ceftriaxone 07/07-. A-fib with RVR. New diagnosis. Initially required diltiazem infusion, then metoprolol PO. Reverted to sinus rhythm by 07/09. CHADS2 score 5 (h/o stroke in [place] circa 2016; unclear etiology). Metoprolol was started; I discussed its use with at least twice daily BP and pulse monitoring (call primary provider or visit urgent care if SBP <110 or HR <55). Anticoag with eliquis was started; I discussed its use with extra caution while ambulating, prevention of falls and watching out for easy bleeding and bruising; she consented to its use. A 1-month prescription of both these meds was provided along with 7d followup with PCP. She should be referred to cardiology by primary provider for further eval. Home health nursing referral given to help ensure safe setup and use of new meds. Hypertension. Stopped home HCTZ in setting of starting metoprolol. Unwitnessed fall while transfering from bed to chair at 4am on morning of 07/10 (discharge day). She mentioned losing balance due to being connected with lines and leads and "sliding to floor"; no loss of consciousness; neurologic exam during AM round was unremarkable. On PT/OT eval on same day, she demonstrated greater than usual strength and steadiness on feet with upto 70 feet ambulation with 4WW. Home health PT/OT referral given to ensure continued strength building and conditioning. CKD stage 3. Cr 1.3 - 1.5 since at least 2019. Best to avoid NSAIDs for chronic back pain. I discussed above impression and plan with her, her and daughter; they comprehended and agreed with it. - Discharge Data Discharge Date: 07/10/21 Discharge Disposition: Home, W Home Health Agency 06 Condition: Fair - Referral to Home Health Date of Face to Face Encounter: 07/10/21 Reason for Homebound Status: requires assist of 1 and walker to leave home Primary Care Physician: PCP None Skilled Need: home health PT , OT and nursing care - Patient Summary/Data Consults: Consultations 07/08/21 09:04 Consult to Physical Therapy [PT Evaluation and Treatment] [CONS] Routine OT Evaluation and Treatment [CONS] Routine - Patient Instructions Diet: Heart Healthy Diet Activity: As Tolerated - Discharge Plan *PRESCRIPTION DRUG MONITORING PROGRAM REVIEWED*: Not Applicable *COPY OF PRESCRIPTION DRUG MONITORING REPORT IN PATIENT DUARTE: Not Applicable Prescriptions/Med Rec: Apixaban [Eliquis] 2.5 mg PO BID #60 tablet Metoprolol Tartrate [Lopressor] 25 mg PO BID #60 tablet Home Medications: Home Meds Aspirin [Halfprin] 81 mg PO DAILY 01/18/20 [History] Levothyroxine 75 mcg PO ACBREAKFAST 01/18/20 [History] Losartan [Cozaar] 50 mg PO DAILY 01/18/20 [History] amLODIPine [Norvasc] 10 mg PO DAILY 01/18/20 [History] cloNIDine [Catapres] 0.2 mg PO BID 01/18/20 [History] Fluticasone Propionate [Flovent] 50 mcg IH BEDTIME 07/07/21 [History] Gabapentin [Neurontin] 100 mg PO BID 07/07/21 [History] Magnesium Oxide 400 mg PO BEDTIME 07/07/21 [History] Apixaban [Eliquis] 2.5 mg PO BID #60 tablet 07/10/21 [Rx] Metoprolol Tartrate [Lopressor] 25 mg PO BID #60 tablet 07/10/21 [Rx] Patient Handouts: Fall Prevention in the Home, Adult, [id number], Atrial Fibrillation, [id number] Referrals: Doroteo Walton MD [Ordering Only Provider] - - Discharge Summary/Plan Comment DC Time >30 min.: Yes Total # of Minutes for Discharge Time: 35 mins - Patient Data Vitals - Most Recent: Last Vital Signs Temp 97.9 F 07/10/21 09:00 Pulse 56 L 07/10/21 09:16 Resp 18 07/10/21 09:00 BP 149/50 H 07/10/21 09:16 Pulse Ox 95 07/10/21 09:00 Weight - Most Recent: 180 lb I&O - Last 24 hours: Intake & Output 07/09/21 07/10/21 07/10/21 22:59 06:59 14:59 Intake Total 500 Balance 500 RON Results - Last 24 hrs: Microbiology 07/07/21 12:29 Aerobic Blood Culture - Preliminary Blood - Arm, Right NO GROWTH AFTER 3 DAYS Anaerobic Blood Culture - Preliminary NO GROWTH AFTER 3 DAYS 07/07/21 12:30 Urine Culture - Final Urine, Voided Escherichia Coli Med Orders - Current: Current Medications Acetaminophen (Acetaminophen 325 Mg Tab) 650 mg PO Q4H PRN PRN Reason: Pain (Mild 1-3)/fever Last Admin: 07/08/21 08:15 Dose: 650 mg Documented by: Hydrocodone Bitart/Acetaminophen (Acetaminophen/Hydrocodone 325-10 Mg Tab) 1 tab PO Q6H PRN PRN Reason: moderate pain Apixaban (Apixaban 5 Mg Tab) 5 mg PO BID [facility] Last Admin: 07/10/21 09:15 Dose: 5 mg Documented by: Budesonide (Budesonide 0.5 Mg/2 Ml Neb Susp) 0.5 mg NEB BIDRT [facility] Last Admin: 07/10/21 08:33 Dose: Not Given Documented by: Clonidine HCl (Clonidine 0.1 Mg Tab) 0.2 mg PO BID [facility] Last Admin: 07/10/21 09:14 Dose: 0.2 mg Documented by: Docusate Sodium (Docusate Sodium 100 Mg Cap) 100 mg PO BID PRN PRN Reason: Constipation Gabapentin (Gabapentin 100 Mg Cap) 100 mg PO BID [facility] Last Admin: 07/10/21 09:15 Dose: 100 mg Documented by: Guaifenesin/Dextromethorphan (Guaifenesin/Dextromethorphan 100-10 Mg/5 Ml Soln 5 Ml Cup) 5 ml PO Q6H PRN PRN Reason: Congestion Ceftriaxone Sodium 1 gm/ (Sodium Chloride) 50 mls @ 100 mls/hr IV Q24H [facility] Last Admin: 07/10/21 12:25 Dose: 100 mls/hr Documented by: Levothyroxine Sodium (Levothyroxine 75 Mcg Tab) 75 mcg PO ACBREAKFAST [facility] Last Admin: 07/10/21 06:19 Dose: 75 mcg Documented by: Losartan Potassium (Losartan 50 Mg Tab) 50 mg PO DAILY [facility] Last Admin: 07/10/21 09:16 Dose: 50 mg Documented by: Magnesium Oxide (Magnesium Oxide 250 Mg Tab) 500 mg PO BEDTIME [facility] Last Admin: 07/09/21 21:19 Dose: 500 mg Documented by: Metoprolol Tartrate (Metoprolol Tartrate 50 Mg Tab) 50 mg PO BID [facility] Last Admin: 07/10/21 09:16 Dose: 50 mg Documented by: Ondansetron HCl (Ondansetron 4 Mg/2 Ml Sdv) 4 mg IVPUSH Q6H PRN PRN Reason: Nausea/Vomiting Sodium Chloride (Sodium Chloride 0.9% 10 Ml Syringe) 10 ml FLUSH ASDIRECTED PRN PRN Reason: Keep Vein Open Temazepam (Temazepam 15 Mg Cap) 15 mg PO BEDTIME PRN PRN Reason: Sleep Last Admin: 07/09/21 21:27 Dose: 15 mg Documented by: Discontinued Medications Diltiazem HCl (Diltiazem 25 Mg/5 Ml Sdv) 20 mg IVPUSH ONETIME ONE Stop: 07/07/21 12:41 Last Admin: 07/07/21 12:47 Dose: 20 mg Documented by: Hydrochlorothiazide (Hydrochlorothiazide 25 Mg Tab) 25 mg PO DAILY [facility] Last Admin: 07/09/21 09:59 Dose: 25 mg Documented by: Diltiazem HCl 125 mg/ Sodium (Chloride) 150 mls @ 5 mls/hr IV ASDIRECTED [facility] Ceftriaxone Sodium 1 gm/ (Sodium Chloride) 50 mls @ 100 mls/hr IV ONETIME ONE Stop: 07/07/21 14:00 Last Admin: 07/07/21 13:52 Dose: 100 mls/hr Documented by: Diltiazem HCl 125 mg/ Sodium (Chloride) 125 mls @ 4.167 mls/hr IV ASDIRECTED [facility]; Protocol Last Infusion: 07/07/21 19:28 Dose: 5 mls/hr Documented by: Ceftriaxone Sodium 1 gm/ (Sodium Chloride) 50 mls @ 100 mls/hr IV Q24H [facility] Metoprolol Tartrate (Metoprolol Tartrate 25 Mg Tab) 50 mg PO BID [facility] Potassium Chloride (Potassium Chloride 10 Meq Tab.Er) 40 meq PO ONETIME ONE Stop: 07/08/21 12:10 Last Admin: 07/08/21 13:50 Dose: 40 meq Documented by:
== END 2021-07-10 14:30 | disposition home health service (06) | DRG 690 ==
LOC: DL.ED 12:16 → DL.MS 15:44 → DL.ED 15:53
PROVIDERS: ADMIT Internal Medicine; ATTEND Student in an Organized Health Care Education/Training Program
DX: N30.00 Acute cystitis without hematuria (principal); I48.91 Unspecified atrial fibrillation; Z79.01 Long term (current) use of anticoagulants; B96.20 Unspecified Escherichia coli [E. coli] as the cause of diseases classified elsewhere; W06.XXXA Fall from bed, initial encounter; Y92.238 Other place in hospital as the place of occurrence of the external cause; I12.9 Hypertensive chronic kidney disease with stage 1 through stage 4 chronic kidney disease, or unspecified chronic kidney disease; Z66 Do not resuscitate; E11.22 Type 2 diabetes mellitus with diabetic chronic kidney disease; N18.30 Chronic kidney disease, stage 3 unspecified; N39.0 Urinary tract infection, site not specified; R31.9 Hematuria, unspecified; Z79.4 Long term (current) use of insulin; E87.6 Hypokalemia; H54.7 Unspecified visual loss; I10 Essential (primary) hypertension; R32 Unspecified urinary incontinence; G89.29 Other chronic pain; M54.9 Dorsalgia, unspecified; Z86.73 Personal history of transient ischemic attack (TIA), and cerebral infarction without residual deficits; E66.9 Obesity, unspecified; Z88.0 Allergy status to penicillin; Z91.048 Other nonmedicinal substance allergy status; Z79.82 Long term (current) use of aspirin; Z79.890 Hormone replacement therapy; Z79.899 Other long term (current) drug therapy; Z20.822 Contact with and (suspected) exposure to COVID-19
CPT/HCPCS: 0240U; 36415; 51798; 80048; 80053; 81001; 83605; 84484; 85025; 87040; 87086; 87088; 87186; 93005; 94010; 94640; 96365; 96366; 96368; 96376; 97161; 97166; 97530; 97535; 99285; A9270-GY; J0696; J3490

== ENCOUNTER 2022-03-03 00:31 | Emergency (ER) | payer MEDICARE, OTHER ==
[2022-03-03] MEDS: Magnesium Sulfate/Water 100 ML ONE (00:37)
[2022-03-03] MEDS: Diltiazem 25 MG/5 ML SDV IVPUSH ONE (00:37)
[2022-03-03] MEDS: Magnesium Sulfate/Water 2 GM in Premix Bag 1 BAG IV ONE ×2 (00:38→00:40)
[2022-03-03] MEDS: Sodium Chloride 0.9% 1,000 ML IV ONE (00:54)
[2022-03-03 00:55] LABS: O2 DELIVERY DEVICE NON REBR MASK
[2022-03-03 00:59] LABS: ALLEN TEST PERFORMED; BASE EXCESS ARTERIAL -5 mmol/L ((-2)-(+3)); BICARBONATE,ARTERIAL 21.2 mmol/L (22-26); O2 SATURATION ARTERIAL 98 % (95-100); PCO2 ARTERIAL 44 mmHg (35-45); PO2 ARTERIAL 102 mmHg (70-100)
[2022-03-03 01:27] LABS: ANION GAP 16.7 mEq/L (7-13)
[2022-03-03 01:28] LABS: RESPIRATORY SYNCYTIAL VIR NAA NEGATIVE (NEGATIVE)
[2022-03-03 01:35] LABS: CORONAVIRUS COVID-19 NAA POSITIVE (NEGATIVE)
[2022-03-03] MEDS: Norepinephrine 4 MG in Dextrose 5% in Water 246 ML IV SCH ×2 (01:50)
[2022-03-03] MEDS: cefTRIAXone 1 GM in Sodium Chloride 0.9% 50 ML IV ONE (01:58)
[2022-03-03] MEDS: Azithromycin 500 MG in Sodium Chloride 0.9% 250 ML IV ONE (02:28)
[2022-03-03] MEDS: Phenylephrine 1% 10 MG/ML SDV ONE (02:40)
== END 2022-03-03 04:39 ==
LOC: DL.ED 00:31
DX: U07.1 COVID-19 (principal); J12.82 Pneumonia due to coronavirus disease 2019; J45.901 Unspecified asthma with (acute) exacerbation; J90 Pleural effusion, not elsewhere classified; J96.01 Acute respiratory failure with hypoxia; I12.9 Hypertensive chronic kidney disease with stage 1 through stage 4 chronic kidney disease, or unspecified chronic kidney disease; N18.9 Chronic kidney disease, unspecified; E66.9 Obesity, unspecified; Z86.73 Personal history of transient ischemic attack (TIA), and cerebral infarction without residual deficits; Z91.011 Allergy to milk products; Z88.0 Allergy status to penicillin; Z91.048 Other nonmedicinal substance allergy status; Z79.82 Long term (current) use of aspirin; Z79.899 Other long term (current) drug therapy; Z79.01 Long term (current) use of anticoagulants; Z68.32 Body mass index [BMI] 32.0-32.9, adult
CPT/HCPCS: 0241U; 36415; 36600; 51702; 71045; 80053; 82803; 83605; 83735; 83880; 84443; 84484; 85025; 85379; 85610; 85730; 86140; 87040; 93005; 93010; 96361; 96365; 96367; 96368; 96375; 96376; 99285; 99285-25; J0282; J0456; J0696; J2370; J3475; J3490; J7030; J7050; J7060

== ENCOUNTER 2022-04-06 08:19 | Emergency (ER) | payer MEDICARE, OTHER ==
[2022-04-06] MEDS ORDERED: Albuterol/Ipratropium 3.0-0.5 MG/3 ML Neb Soln NEB ONE (08:35)
[2022-04-06] MEDS ORDERED: methylPREDNISolone Sodium Succinate 125 MG/2 ML SDV IVPUSH ONE (08:38)
[2022-04-06] MEDS ORDERED: Magnesium Sulfate/Water 2 GM in Premix Bag 1 BAG IV ONE (08:38)
[2022-04-06] MEDS ORDERED: Sodium Chloride 0.9% 10 ML Syringe FLUSH PRN (08:39)
[2022-04-06] MEDS ORDERED: Diltiazem 25 MG/5 ML SDV IVPUSH ONE ×2 (09:14→09:21)
[2022-04-06 09:33] LABS: ANION GAP 13.2 mEq/L (7-13); CHLORIDE,CL 106 mmol/L (98-107); SODIUM,NA 144 mmol/L (136-145)
[2022-04-06 09:42] LABS: ESTIMATED GFR 32 mL/min (>=60)
[2022-04-06] MEDS ORDERED: Furosemide 40 MG/4 ML VIAL IVPUSH ONE (10:00)
[2022-04-06 10:10] LABS: O2 DELIVERY DEVICE NASAL CANNULA
[2022-04-06 10:12] LABS: ALLEN TEST PERFORMED
[2022-04-06 10:13] LABS: BASE EXCESS ARTERIAL 2 mmol/L ((-2)-(+3)); BICARBONATE,ARTERIAL 27.5 mmol/L (22-26); O2 SATURATION ARTERIAL 93 % (95-100); PCO2 ARTERIAL 50 mmHg (35-45); PO2 ARTERIAL 72 mmHg (70-100)
== END 2022-04-06 11:55 ==
LOC: DL.ED 08:19
DX: I11.0 Hypertensive heart disease with heart failure (principal); I50.9 Heart failure, unspecified; E66.9 Obesity, unspecified; Z68.32 Body mass index [BMI] 32.0-32.9, adult; Z88.0 Allergy status to penicillin; Z91.011 Allergy to milk products; Z91.048 Other nonmedicinal substance allergy status; Z79.82 Long term (current) use of aspirin; Z86.73 Personal history of transient ischemic attack (TIA), and cerebral infarction without residual deficits; Z79.899 Other long term (current) drug therapy
CPT/HCPCS: 36415; 36600; 51702; 71045; 80053; 81001; 82803; 83605; 83735; 83880; 84484; 85025; 86140; 87040; 93005; 96365; 96375; 99285; J1940; J2930; J3475; J3490; J7620-GY